=== PATIENT | female | born 2000 | race Caucasian/White ===

== ENCOUNTER 2024-02-06 07:54 | Outpatient (OUT) | payer OTHER, SELFPAY | END 2024-02-06 07:55 | disposition home or self-care (01) | LOC: PST 07:58 | PROVIDERS: PCP Nurse Practitioner Family; Visit Provider Obstetrics & Gynecology | DX: Z01.818 Encounter for other preprocedural examination (principal); R10.2 Pelvic and perineal pain; N83.299 Other ovarian cyst, unspecified side ==

== ENCOUNTER 2024-02-21 08:58 | Day surgery (SDC) | payer OTHER, SELFPAY ==
[2024-02-06 08:38] VITALS: BP 112/68; PULSE 84; TEMP 36.3; O2SAT 100; BMI 23.5
[2024-02-21] VITALS (17 sets, daily range): BP systolic 95–132; BP diastolic 52–81; PULSE 81–109; TEMP 36.1–36.5; O2SAT 97–100; BMI 23.1
[2024-02-21 09:11] LABS: Basophils Percent Auto 0.6 % (0.2-2.0); Eosinophils Absolute Auto 0.1 10^3/uL (0.0-0.7); Eosinophils Percent Auto 0.7 % (0.9-7.0); Hematocrit 33.3 % (36.0-48.0); Hemoglobin 11.1 g/dL (12.0-16.0); Immature Granulocytes Abs Auto 0.02 10^3/uL (0.00-0.03); Immature Granulocytes Pct Auto 0.3 % (0.0-0.5); Lymphocytes Absolute Auto 2.3 10^3/uL (1.2-3.8); Mean Corpuscular HGB Conc 33.3 g/dL (29.9-35.2); Mean Corpuscular Hemoglobin 28.5 pg (26.7-34.0); Mean Corpuscular Volume 85.4 fL (81.0-99.0); Mean Platelet Volume 11.2 fL (9.5-13.5); Monocytes Absolute Auto 0.5 10^3/uL (0.3-0.8); Monocytes Percent Auto 7.7 % (1.7-12.0); Neutrophils Percent Auto 57.7 % (43.0-75.0); Platelet Count 225 10^3/uL (150-450); Red Cell Distribution Width 13.1 % (11.0-15.0); White Blood Count 6.9 10^3/uL (4.0-11.0)
--- OUTSIDE RECORDS SUMMARY | 2024-02-21 09:22 | XMS_ITS | CCD ---
Author Organization [facility] Care Team Providers Care Skinning Machine Feeder Name Role Phone AMBAR, MURALI Admitting Unavailable AMBAR, MURALI Attending Unavailable AMBAR, MURALI Consulting Unavailable AMBAR, MURALI Admitting Unavailable AMBAR, MURALI Attending Unavailable AMBAR, MURALI Consulting Unavailable DO Te Calles Attending Provider [phone] Yulissa Coy Primary Care Physician DO Te Calles Attending Provider [phone] Te Calles Attending Unavailable Te Calles Admitting Unavailable BILL, EDEL Attending Unavailable BILL, EDEL Attending Unavailable BILL, EDEL Attending Unavailable Wiley Esquivel Attending Unavailable Wiley Esquivel Attending Unavailable BILL, Edel R Admitting Unavailable BILL, Edel R Attending Unavailable BILL, Edel R Referring Unavailable BILL, Edel R Attending Unavailable BILL, Edel R Admitting Unavailable BILL, Edel R Admitting Unavailable BILL, Edel R Attending Unavailable Wiley Esquivel Admitting Unavailable Wiley Esquivel Attending Unavailable Wiley Esquivel Admitting Unavailable Wiley Esquivel Attending Unavailable BILL, Edel R Admitting Unavailable BILL, Edel R Attending Unavailable BILL, Edel R Referring Unavailable Allergies Allergy Classification Reported Allergen(s) Allergy Type Date of Onset Reaction(s) Facility (11 sources) Penicillin; Translations: [penicillin] Drug Allergy Weal (disorder) [facility] (1 source) No Known Medication Allergies; Translations: [No Known Medication Allergies] Propensity to adverse reactions (disorder) [facility] Repository Medications Current Medications Medication Drug Class(es) Dates Sig (Normalized) Sig (Original) azithromycin 250 mg oral tablet (1 source) Macrolide Antimicrobial Start: 02-12-2023 End: 02-17-2023 Zithromax 250 mg Tab = 1 packet(s), Oral, As Directed, as directed on package labeling, X 5 day(s), # 6 tab(s), Refills(s) 0, Pharmacy: [facility] #[facility], 166, cm, 02/12/23 14:16:00 EDT, Height/Length Dosing, 65.3, kg, 02/12/23 14:16:00 EDT, Weight Dosing Start Date: 02/12/23 Stop Date: 02/17/23 Status: Ordered benzonatate 100 mg oral capsule (1 source) Non-narcotic Antitussive Start: 02-12-2023 End: 02-19-2023 take 1 capsule by mouth three times daily Tessalon 100 mg Cap 100 mg = 1 cap(s), Oral, TID, X 7 day(s), # 21 cap(s), Refills(s) 0, Pharmacy: [facility] #37, 166, cm, 02/12/23 14:16:00 EDT, Height/Length Dosing, 65.3, kg, 02/12/23 14:16:00 EDT, Weight Dosing Start Date: 02/12/23 Stop Date: 02/19/23 Status: Ordered phenazopyridine hydrochloride 100 mg oral tablet (3 sources) Start: 08-02-2023 End: 08-05-2023 take 1 tablet by mouth three times daily Pyridium 100 mg Tab 100 mg = 1 tab(s), Oral, TID, X 3 day(s), # 9 tab(s), Refills(s) 0, Pharmacy: [facility] #37, 165, cm, 08/02/23 12:41:00 EDT, Height/Length Dosing, 60, kg, 08/02/23 12:41:00 EDT, Weight Dosing Start Date: 08/02/23 Stop Date: 08/05/23 Status: Ordered sulfamethoxazole 800 mg / trimethoprim 160 mg oral tablet (2 sources) Dihydrofolate Reductase Inhibitor Antibacterial, Sulfonamide Antimicrobial Start: 08-21-2022 End: 08-24-2022 Bactrim D.S. 800 mg-160 mg Tab 1 tab(s), Oral, BID for 3 day(s), 6 tab(s), Refill(s) 0, [facility] #[facility], 168, cm, 08/21/22 17:43:00 EST, Height/Length Dosing, 68.1, kg, 08/21/22 17:43:00 EST, Weight Dosing Start Date: 08/21/22 Stop Date: 08/24/22 Status: Ordered Problems Active Problems Problem Classification Problem Date Documented Da te Episodic/Chronic Chronic obstructive pulmonary disease and bronchiectasis (1 source) Bronchitis; Translations: [Bronchitis, not specified as acute or chronic] Onset: 02-12-2023 Episodic Genitourinary symptoms and ill-defined conditions (3 sources) Dysuria; Translations: [Dysuria] Onset: 08-02-2023 Episodic Unclassified (2 sources) CONTACT W/AND (SUSP) EXPOS COVID-19; Translations: [CONTACT W/AND (SUSP) EXPOS COVID-19] Onset: 07-09-2021 Urinary tract infections (2 sources) Urinary tract infectious disease; Translations: [Urinary tract infection, site not specified] Onset: 08-21-2022 Episodic Viral infection (1 source) COVID-19; Translations: [COVID-19] Onset: 07-09-2021 Past or Other Problems Problem Classification Problem Date Documented Date Episodic/Chronic Immunizations and screening for infectious disease (4 sources) Contact with and (suspected) exposure to infections with a predominantly sexual mode of transmission; Translations: [CONTCT W EXPOS INFECT SEXUAL TRNSMS] Onset: 01-27-2021 Episodic Unclassified (1 source) CONTACT W/AND (SUSP) EXPOS COVID-19; Translations: [CONTACT W/AND (SUSP) EXPOS COVID-19] Onset: 06-22-2021 Results Test Name Value Interpretation Reference Range Facility AFPon 01-30-2024 AFP.tumor marker [Mass/Vol] ng/mL Invalid Interpretation Code 0.0-4.7 [facility] Comment on above: Result Comment: Yekra Electrochemiluminescence Immunoassay (ECLIA) Values obtained with different assay methods or kits cannot be used interchangeably. Results cannot be interpreted as absolute evidence of the presence or absence of malignant disease. This test is not interpretable in females. Performed at: [address] [id number] PhD Bryan Ruelas Performed By: #### 2 552072, 5982951, [id number] ####[facility] [address] [place] [address] CA 125on 01-30-2024 Cancer Ag 125 Qn 28.5 unit/mL Invalid Interpretation Code 0.0-38.1 [facility] Comment on above: Result Comment: [employer] Electrochemiluminescence Immunoassay (ECLIA) Values obtained with different assay methods or kits cannot be used interchangeably. Results cannot be interpreted as absolute evidence of the presence or absence of malignant disease. Performed at: [address] [id number] PhD Bryan Ruelas Performed By: #### 2 941819, 6839807, 4201353 ####[facility] [address] [place] [address] Lab Miscellaneous-LCon 01-29 Lab Miscellaneous COMMENT Invalid Interpretation Code [facility] Comment on above: Result Comment: Test Ordered: 129277 hCG,Beta Subunit, Qnt hCG,Beta Subunit,Qnt,Serum <1 mIU/mL CB Female (Non-) 0 - 5 (Postmenopausal) 0 - 8 Female () Weeks of Gestation 3 6 - 71 4 10 - 750 5 618 - 9738 6 133 - 68242 7 4572 -521643 8 37833 -728672 9 00833 -522144 10 35138 -575970 12 11363 -836664 14 02268 - 78495 15 35086 - 35783 16 6146 - 28108 17 1144 - 27402 18 2555 - 29837 Sanjay ECLIA methodology Performed at: [address] [id number] PhD Bryan Ruelas Performed By: #### 1 [id number] ####[facility] [address] [place] [address] CEAon 01-29-2024 CEA 0.4 ng/mL Invalid Interpretation Code [facility] Comment on above: Result Comment: 'NON -SMOKER < 2.5' 'SMOKER < 5.0' The concentration of CEA in a given specimen determined by different manufacturers can vary due to differences in assay methods and reagent specificity. Values obtained with different assay methods cannot be used interchangeably. The methodology used to perform this test was chemiluminescence using [employer] Access CEA reagent. Performed By: #### 2 044461, 6831104, 8323698 ####[facility] [address] [place] [address] CHEMISTRYOrdered By: SYSTEM SYSTEM on 01-29-2024 CEA 0.4 ng/mL Invalid Interpretation Code [facility] Comment on above: Result Comment: 'NON -SMOKER < 2.5' 'SMOKER < 5.0' Interpretive Data: T he concentration of CEA in a given specimen determined by different manufacturers can vary due to differences in assay methods and reagent specificity. Values obtained with different assay methods cannot be used interchangeably. The methodology used to perform this test was chemiluminescence using [employer] Access CEA reagent. Consent for Treatmenton 01-06 Consent for Treatment [id number]#1.00TIFF Normal [facility] Lab Miscellaneous-LCon 01-28 Test Code 143467 Invalid Interpretation Code [facility] Comment on above: Performed By: #### 1 [id number] ####[address] [address] Test Name HCG, tumor lorenzo Invalid Interpretation Code [facility] Comment on above: Performed By: #### 1 [id number] ####[address] [address] Physician Orderon 01-29-2024 Physician Order [id number]#1.00TIFF Normal [facility] Reference Laboratory Testing Ordered By: Niya Anguiano on 01-29-2024 Test Code 860481 1 Invalid Interpretation Code [facility] Test Code 574426 1 Invalid Interpretation Code [facility] Test Name LDH Isoenzymes Invalid Interpretation Code [facility] Test Name HCG, tumor lorenzo Invalid Interpretation Code [facility] US Pelvis Non-OB Completeon 01-17-2024 US Pelvis Non-OB Complete Exam Date/Time: 01/14/2024 09:56 EDT Reason for Exam: N92.6, N83.209 Report IMPRESSION: 1.8 and 1.6 cm hypoechoic nodules/cysts of the right adnexa region without distinct internal vascularity, appears interval decreased in size from 10/22/2023, favoring benign process. Probable hemorrhagic cyst of the left adnexa region measuring 3.0 cm, new from prior. Consider follow-up in 2-3 months to ensure stability/resolution. EXAMINATION: US Pelvis Non-OB Complete HISTORY: Interval follow-up. COMPARISON: 10/22/2023 TECHNIQUE: Sonography of the pelvis was performed by transvaginal and transabdominal techniques. Images were obtained and stored in a permanent archive. RESULT: Uterus: -Orientation: Anteverted -Size: Uterus Length: 8.7 cm x Uterus Width: 5.0 cm x Uterus Height: 3.2 cm. Uterus Volume: 71.9 cm3 -Myometrium: Homogeneous echotexture. -Endometrial echo complex: Endometrium Thickness: 0.8 cm -Cervix: Nabothian cysts, otherwise unremarkable. Right ovary: -Size: Right Ovary Length: 3.6 cm x Right Ovary Width: 3.5 cm x Right Ovary Height: 2.3 cm. Right Ovary Volume: 15.2 cm3 -Complex cyst/solid mass: 1.8 and 1.6 cm hypoechoic nodules or cysts, without distinct internal vascularity, and appear slightly decreased in size from the prior ultrasound, favoring benign process. -Vascular flow present. Left ovary: -Size: Left Ovary Length: 3.4 cm x Left Ovary Width: 2.4 cm x Left Ovary Height: 2.0 cm. Left Ovary Volume: 8.5 cm3 -Complex cyst/solid mass: 3.0 cm complex appearing cyst, probably representing hemorrhagic cysts, new from prior. -Vascular flow present. Free fluid: None. Report Ordering Provider: Edel KHAN FINAL REPORT Dictated: 01/17/2024 10:13 am KendraBentley sheikh MD Signed (Electronic Signature): 01/17/2024 10:13 am Signed by: Bentley Gardner MD Transcribed by: MARI Technologist: CARLOZ [facility] US Transvaginal Non-OBon US Transvaginal Non-OB Exam Date/Time: 01/14/2024 09:56 EDT Reason for Exam: N92.6, N83.209 Report Refer to concurrent pelvic ultrasound dictation. Ordering Provider: Edel KHAN FINAL REPORT Dictated: 01/17/2024 10:14 am Bentley Gardner MD Signed (Electronic Signature): 01/17/2024 10:14 am Signed by: Bentley Gardner MD Transcribed by: MARI Technologist: CARLOZ [facility] Consent for Treatmenton Consent for Treatment [id number]#1.00TIFF [facility] Physician Orderon 12-09-2023 Physician Order [id number]#1.00TIFF [facility] Anti-Mullerian Hormone (AMH) on 10-25-2023 Mullerian inhibiting substance [Mass/Vol] 5.63 ng/mL Invalid Interpretation Code [facility] Comment on above: Result Comment: For assays employing antibodies, the possibility exists for interference by heterophile antibodies in the samples.1 1.Suzi Spence. Interferences in Immunoassays - still a threat. Clin. Chem. 2000; 46: 2530-1045. This test was developed and its performance characteristics determined by [employer]. It has not been cleared or approved by the Food and Drug Administration. Reference Range: Females 20 - 25y: 1.23 - 11.51 Median 4.70 AMH concentrations of >= 1.06 ng/mL is correlated with a better response to ovarian stimulation, produced more retrievable oocytes and higher odds of live according to Ze et al. Fertility and Sterility. 2010: 94:3351-4159. The current AMH test method correlates with the study method with a slope of 0.94. Females at risk of ovarian hyperstimulation syndrome or polycystic ovarian syndrome (PCOS) may exhibit elevated serum AMH concentrations. AMH levels from PCOS patients may be 2 to 5 fold higher than age-appropriate reference interval values. Granulosa cell tumors of the ovary may secrete AMH along with other tumor markers. Elevated AMH is not specific for malignancy, and the assay should not be used exclusively to diagnose or exclude an AMH-secreting ovarian tumor. Performed at: [facility] [address] [place] [address] [id number] MD Curtis Abdalla Performed By: #### 2 053201, 9421012, 685123559, 8647645, 39757378, 8952232744, 0306196, 47177722 ####[facility] [address] [place] [address] DHEASon 10-25-2023 DHEA-S [Mass/Vol] 265.0 microgram/dL Invalid Interpretation Code 110.0-431. 7 [facility] Comment on above: Result Comment: Perf ormed at: [facility] [address] [id number] PhD Bryan Ruelas Performed By: #### 2 914447, 6750415, 598021007, 4976606, 12026968, 2405254797, 8306818, 24895068 ####[facility] [address] [place] [address] FSH and LHon 10-25-2023 Follitropin Qn 12.1 m[IU]/mL Invalid Interpretation Code [facility] Comment on above: Result Comment: Adul t Female Range Follicular phase 3.5 - 12.5 Ovulation phase 4.7 - 21.5 Luteal phase 1.7 - 7.7 Postmenopausal 25.8 - 134.8 Performed at: [facility] [address] [place], [place] [id number] PhD Bryan Ruelas Performed By: #### 2 622216, 4238423, 229696697, 1599026, 11627306, 0406275825, 9480126, 45632868 ####[facility] [address] [place] [address] Lutropin Qn 66.7 m[IU]/mL Invalid Interpretation Code [facility] Comment on above: Result Comment: Adul t Female Range Follicular phase 2.4 - 12.6 Ovulation phase 14.0 - 95.6 Luteal phase 1.0 - 11.4 Postmenopausal 7.7 - 58.5 Performed By: #### 2 966780, 2098126, 491816438, 9483623, 37849076, 9943274145, 7550383, 77300352 ####[facility] [address] [place] [address] US Pelvis Non-OB Completeon 10-23-2023 US Pelvis Non-OB Complete Exam Date/Time: 10/22/2023 12:35 EST Reason for Exam: N92.6 Irregular menstruation, unspecified Report IMPRESSION: 2.1 and 1.9 cm hypoechoic nodules/cysts in the right adnexa region without distinct internal vascularity. These may represent hemorrhagic cysts or dermoid cysts. Consider follow-up ultrasound in around 6-8 weeks to ensure stability/resolution. EXAMINATION: US Pelvis Non-OB Complete HISTORY: N92.6 Irregular menstruation, unspecified. COMPARISON: None TECHNIQUE: Sonography of the pelvis was performed by transabdominal technique. Images were obtained and stored in a permanent archive. RESULT: Uterus: -Orientation: Anteverted -Size: Uterus Length: 9.6 cm x Uterus Width: 5.0 cm x Uterus Height: 3.2 cm. Uterus Volume: 79.9 cm3 -Myometrium: Homogeneous echotexture. -Endometrial echo complex: Endometrium Thickness: 1.6 cm -Cervix: Nabothian cysts, otherwise unremarkable. Right ovary: -Size: Right Ovary Length: 3.9 cm x Right Ovary Width: 3.7 cm x Right Ovary Height: 2.6 cm. Right Ovary Volume: 19.8 cm3 -Complex cyst/solid mass: 1.9 cm and 2.1 cm hypoechoic nodules or cysts without distinct internal vascularity. These may represent hemorrhagic cysts or dermoid cysts. -Vascular flow present. Left ovary: 2.7 cm and 2.1 cm anechoic benign-appearing cysts. -Size: Left Ovary Length: 5.1 cm x Left Ovary Width: 3.6 cm x Left Ovary Height: 3.1 cm. Left Ovary Volume: 29.7 cm3 -Complex cyst: None. -Solid mass: None. -Vascular flow present. Free fluid: None. Report Ordering Provider: Edel KHAN FINAL REPORT Dictated: 10/23/2023 9:56 am Bentley Gardner MD Signed (Electronic Signature): 10/23/2023 9:56 am Signed by: Bentley Gardner MD Transcribed by: MARI Technologist: CARLOZ Normal [facility] US Transvaginal Non-OBon US Transvaginal Non-OB Exam Date/Time: 10/22/2023 12:35 EST Reason for Exam: Abnormal vaginal bleeding Report Refer to concurrent pelvic ultrasound dictation. Ordering Provider: Edel KHAN FINAL REPORT Dictated: 10/23/2023 9:56 am Bentley Gardner MD Signed (Electronic Signature): 10/23/2023 9:56 am Signed by: Bentley Gardner MD Transcribed by: MARI Technologist: CARLOZ Normal [facility] Auto Diffon 10-22-2023 Basophils/100 WBC (Bld) 0.5 % Normal 0.0-2.0 [facility] Comment on above: Order Comment: Order Added by Discern Expert. Performed By: #### 2 181220, 6436253, 835722006, 0761207, 80620212, 4722016303, 9112973, 54046010 ####[facility] [address] [place] [address] Basophils/Leukocytes Auto (Bld) [Pure # fraction] 0.0 E9/L Normal 0.0-0.2 [facility] Comment on above: Order Comment: Order Added by Discern Expert. Performed By: #### 2 190860, 1077876, 251229160, 5228811, 45568780, 6025295210, 5468939, 98997554 ####[facility] [address] [place] [address] Eosinophils/100 WBC (Bld) 0.5 % Normal 0.0-8.0 [facility] Comment on above: Order Comment: Order Added by Discern Expert. Performed By: #### 2 563622, 4837630, 948617157, 3968083, 50094807, 9068742430, 3856857, 88632232 ####[address] [place] [address] Eosinophils/Leukocytes Auto (Bld) [Pure # fraction] 0.0 E9/L Normal 0.0-0.5 [facility] Comment on above: Order Comment: Order Added by Discern Expert. Performed By: #### 2 131512, 0110133, 077890751, 4657190, 10507440, 0719379704, 0501795, 49047609 ####[address] [place] [address] Lymphocytes/100 WBC (Bld) 21.2 % Normal 14.0-50.0 [facility] Comment on above: Order Comment: Order Added by Discern Expert. Performed By: #### 2 788330, 4920689, 966721884, 3044285, 72878900, 2228411998, 3351434, 61304216 ####[address] [address] Lymphocytes/Leukocytes Auto (Bld) [Pure # fraction] 1.8 E9/L Normal 1.0-4.0 [facility] Comment on above: Order Comment: Order Added by Discern Expert. Performed By: #### 2 284402, 3156171, 658047449, 0123481, 87750176, 2684474528, 2164049, 96099467 ####[address] [address] Monocytes/100 WBC (Bld) 7.4 % Normal 4.0-14.0 [facility] Comment on above: Order Comment: Order Added by Discern Expert. Performed By: #### 2 319814, 4061528, 399005869, 7731058, 09467842, 5295027357, 7786006, 41223012 ####[address] [place] [address] Monocytes/Leukocytes Auto (Bld) [Pure # fraction] 0.6 E9/L Normal 0.2-1.0 [facility] Comment on above: Order Comment: Order Added by Discern Expert. Performed By: #### 2 240362, 4575750, 443761248, 1339647, 13650776, 4805741962, 3620133, 75529443 ####[facility] [address] [place] [address] Neutrophils/100 WBC (Bld) 70.4 % Normal 36.0-75.0 [facility] Comment on above: Order Comment: Order Added by Discern Expert. Performed By: #### 2 133492, 2151699, 810219438, 5148960, 04591332, 4665139910, 5993674, 22570577 ####[facility] [address] [place] [address] Neutrophils/Leukocytes Auto (Bld) [Pure # fraction] 6.2 E9/L Normal 2.0-7.5 [facility] Comment on above: Order Comment: Order Added by Discern Expert. Performed By: #### 2 361297, 9913663, 050258841, 7260267, 71186818, 6826144847, 9870120, 07359755 ####[facility] [address] [place] [address] BhCG Quanton 10-22-2023 Beta hCG Qnt <1 Normal 1-3 [facility] Comment on above: Result Comment: 'F N ON < 1 - 3' ' 0.2 - 1 WEEK = 5 TO 50' ' 1 - 2 WEEKS = 50 - 500' ' 2 - 3 WEEKS = 100 - 5000' ' 3 - 4 WEEKS = 500 - 71803' ' 4 - 5 WEEKS = 1000 - 99937' ' 5 - 6 WEEKS = 86920 - 502334' ' 6 - 8 WEEKS = 62002 - 401097' ' 8 - 12 WEEKS = 41485 - 387229' Performed By: #### 2 649311 ####[facility] [address] [place] [address] CBC w/ Auto Diffon Erythrocyte distribution width (RBC) [Ratio] 14.5 % High 10.9-14.2 [facility] Comment on above: Performed By: #### 2 196808, 5672819, 258242577, 2689176, 05059099, 9806021457, 3386928, 36117485 ####[facility] [address] [place] [address] Hematocrit (Bld) [Volume fraction] 35.6 % Normal 34.0-46.0 [facility] Comment on above: Performed By: #### 2 228926, 0688910, 160806227, 7009330, 33386103, 5234510173, 0830030, 77766243 ####[address] [place] [address] Hemoglobin (Bld) [Mass/Vol] 11.9 g/dL Low 12.0-16.0 [facility] Comment on above: Performed By: #### 2 968836, 9088479, 215291387, 5982485, 54835715, 8869575619, 3183264, 49620968 ####[facility] [address] [place] [address] MCH (RBC) [Entitic mass] 28.6 pg Normal 27.0-34.0 [facility] Comment on above: Performed By: #### 2 384102, 8063716, 991460268, 8019888, 27320268, 1999278940, 2722219, 63138433 ####[facility] [address] [place] [address] MCHC (RBC) [Mass/Vol] 33.4 g/dL Normal 31.4-36.0 [facility] Comment on above: Performed By: #### 2 805292, 1458514, 776865136, 0732616, 27685411, 3098528327, 7476253, 56413062 ####[facility] [address] [place] [address] MCV (RBC) [Entitic vol] 85.8 fL Normal 80.0-100.0 [facility] Comment on above: Performed By: #### 2 088560, 2251762, 327997715, 3946474, 53808116, 2200937147, 3256006, 96258743 ####[facility] [address] [place] [address] Platelet mean volume (Bld) [Entitic vol] 9.8 fL Normal 6.4-10.8 [facility] Comment on above: Performed By: #### 2 194231, 6902958, 911997441, 7973236, 70397353, 1060640168, 7085248, 09105228 ####[address] [place] [address] Platelets (Bld) [#/Vol] 293.0 E9/L Normal 150.0-500. 0 [facility] Comment on above: Performed By: #### 2 504461, 2063904, 124018534, 5662827, 40685346, 2739241987, 3502335, 07191122 ####[address] [address] RBC (Bld) [#/Vol] 4.2 E12/L Low 4.3-5.9 [facility] Comment on above: Performed By: #### 2 723804, 1234743, 284918291, 6261828, 27319377, 0006110119, 1830845, 60147181 ####[address] [address] WBC corrected for nucl RBC Auto (Bld) [#/Vol] 8.7 E9/L Normal 4.0-11.0 [facility] Comment on above: Performed By: #### 2 164181, 2360371, 795132552, 9087753, 13236051, 0182570118, 0965865, 96645852 ####[address] [place] [address] CHEMISTRYOrdered By: SYSTEM SYSTEM on 10-22-2023 Beta hCG Qnt mIU/mL Normal 1 - 3 mIU/mL [facility] Comment on above: Result Comment: 'F N ON < 1 - 3' ' 0.2 - 1 WEEK = 5 TO 50' ' 1 - 2 WEEKS = 50 - 500' ' 2 - 3 WEEKS = 100 - 5000' ' 3 - 4 WEEKS = 500 - 79400' ' 4 - 5 WEEKS = 1000 - 27563' ' 5 - 6 WEEKS = 89956 - 102623' ' 6 - 8 WEEKS = 45991 - 137296' ' 8 - 12 WEEKS = 19185 - [id number]' Free T4 [Mass/Vol] 0.75 ng/dL Normal 0.58 - 1.64 ng/dL Remisol Chem TSH Qn 2.03 m[IU]/L Normal 0.34 - 5.60 mcIU/mL Remisol Chem CHEMISTRYOrdered By: Saida Anguiano on 10-22-2023 HbA1c (Bld) [Mass fraction] 4.7 % Normal <=5.9% [facility] ChemAutoSS Consent for Treatmenton 10-07 Consent for Treatment [id number]#1.00TIFF Normal [facility] Consent for Treatment [id number]#1.00TIFF Normal [facility] Free T4on 10-22-2023 Free T4 [Mass/Vol] 0.75 ng/dL Normal 0.58-1.64 [facility] Comment on above: Performed By: #### 2 [id number], [id number], [id number] ####[facility] [address] [place] [address] HEMATOLOGYOrdered By: SYSTEM SYSTEM on 10-22-2023 Basophils/100 WBC (Bld) 0.5 % Normal 0.0 - 2.0 % [facility] HemeAutoSS Basophils/Leukocytes Auto (Bld) [Pure # fraction] 0.0 E9/L Normal 0.0 - 0.2 E9/L [facility] HemeAutoSS Eosinophils/100 WBC (Bld) 0.5 % Normal 0.0 - 8.0 % [facility] HemeAutoSS Eosinophils/Leukocytes Auto (Bld) [Pure # fraction] 0.0 E9/L Normal 0.0 - 0.5 E9/L [facility] HemeAutoSS Lymphocytes/100 WBC (Bld) 21.2 % Normal 14.0 - 50.0 % [facility] HemeAutoSS Lymphocytes/Leukocytes Auto (Bld) [Pure # fraction] 1.8 E9/L Normal 1.0 - 4.0 E9/L [facility] HemeAutoSS Monocytes/100 WBC (Bld) 7.4 % Normal 4.0 - 14.0 % [facility] HemeAutoSS Monocytes/Leukocytes Auto (Bld) [Pure # fraction] 0.6 E9/L Normal 0.2 - 1.0 E9/L [facility] HemeAutoSS Neutrophils/100 WBC (Bld) 70.4 % Normal 36.0 - 75.0 % [facility] HemeAutoSS Neutrophils/Leukocytes Auto (Bld) [Pure # fraction] 6.2 E9/L Normal 2.0 - 7.5 E9/L [facility] HemeAutoSS HEMATOLOGYOrdered By: Karen Martinez on 10-22-2023 Erythrocyte distribution width (RBC) [Ratio] 14.5 % High 10.9 - 14.2 % [facility] HemeAutoSS Hematocrit (Bld) [Volume fraction] 35.6 % Normal 34.0 - 46.0 % [facility] HemeAutoSS Hemoglobin (Bld) [Mass/Vol] 11.9 g/dL Low 12.0 - 16.0 gm/dL [facility] HemeAutoSS MCH (RBC) [Entitic mass] 28.6 pg Normal 27.0 - 34.0 pg [facility] HemeAutoSS MCHC (RBC) [Mass/Vol] 33.4 g/dL Normal 31.4 - 36.0 gm/dL [facility] HemeAutoSS MCV (RBC) [Entitic vol] 85.8 fL Normal 80.0 - 100.0 fL [facility] HemeAutoSS Platelet mean volume (Bld) [Entitic vol] 9.8 fL Normal 6.4 - 10.8 fL [facility] HemeAutoSS Platelets (Bld) [#/Vol] 293.0 E9/L Normal 150.0 - 500.0 E9/L [facility] HemeAutoSS RBC (Bld) [#/Vol] 4.2 E12/L Low 4.3 - 5.9 E12/L [facility] HemeAutoSS WBC corrected for nucl RBC Auto (Bld) [#/Vol] 8.7 E9/L Normal 4.0 - 11.0 E9/L [facility]eAuto[facility] [id number] 10-22-2023 HbA1c (Bld) [Mass fraction] 4.7 % Normal <=5.9 [facility] Comment on above: Performed By: #### 2 [id number], [id number], [id number], [id number], [id number], [id number] ####[facility] [address] [place] [address] Physician Orderon 10-22-2023 Physician Order [id number]#1.00TIFF Normal [facility] TSHon 10-22-2023 TSH Qn 2.03 m[IU]/L Normal 0.34-5.60 [facility] Comment on above: Performed By: #### 2 [id number], [id number], [id number], [id number] ####[facility] [address] [place] [address] Physician Orderon 10-10-2023 Physician Order [id number]#1.00TIFF Normal [facility] C Urineon 08-04-2023 Bacteria identified Cx Nom (U) Microbiology PROCEDURE: Urine Culture [R1] SOURCE: U CleanCatch BODY SITE: COLLECTED DATE/TIME: 08/02/2023 13:10 EDT RECEIVED DATE/TIME: 08/02/2023 14:37 EDT START DATE/TIME: 08/02/2023 14:37 EDT FREE TEXT SOURCE: Alvin NICOLAS, Wiley Esquivel PA-C, Wiley Yu. FINAL REPORTS Final Report [] Verified Date/Time: 08/04/2023 11:35 EDT 1,000 cfu/ml Mixed skin contaminants Performing Locations R1: This test was performed at: [facility], [address] [place] [address], [id number] , [place], Normal [facility] Comment on above: Performed By: #### 2 [id number] ####[facility] [address] [place] [id number] Family Medicine Office/Clini c Noteon 08-02-2023 Family Medicine Office/Clinic Note Chief Complaint Here for c/o uti sx HPI Staff Oscar 22 yr old female here for UTi sx of pressure when urinating, urgency and then cant go starting 2 weeks ago and sx come and go randomly History of Present Illness I have reviewed and verified the staff HPI to be accurate for this encounter. Portions of this record have been created with voice recognition software. Occasional wrong-word or ?uihgb-u-flip? substitutions may have occurred due to the inherent limitations of voice recognition software. 22 yo female presents today with cc of possible UTI. Patient states over the past 2 weeks intermittently she has had some urinary urgency and frequency. States on occasion she feels like she has to go and then can only go a small amount. States occasional dysuria denies any hematuria. She denies any abdominal or pelvic pain denies any low back pain fever chills. Denies flank pain or history of kidney stones. Patient states she is only had a urinary tract infection 1 other time. Patient states that her symptoms are very tolerable and when she just bought some heni-diu-cycgwra cranberry and vitamin C. She has not tried any other modifying factors and states she been drinking lots of water. Patient states she had concern is she is in a wedding this weekend. Wanted to make sure that she did not have an acute UTI that she states she has been watching all of these videos on TikTok and had concern that she would develop a kidney infection. She denies any abdominal pain nausea vomiting or diarrhea with her symptoms. Denies any chance of . She has no other concerns at this time. Review of Systems PHQ Score Initial Depression Screen Score: 0 ROS negative unless otherwise stated in HPI. Physical Exam Vitals & Measurements T: 37 ?C(Temporal Artery) HR: 80(Peripheral) RR: 18 BP: 118/68 SpO2: 98% HT: 65 in HT: 165 cm WT: 60 kg WT: 132 lb BMI: 22.04 General: Well developed, well nourished, in no acute distress Eyes: not assessed Ears: not assessed Nose: not addressed Mouth: not assessed Neck: not assessed Lungs: Lung sounds are clear bilaterally. No wheezing rhonchi or crackles on exam. Cardio: S1, S2, regular rhythm. No murmurs gallops or rubs. Abdomen: Bowel sounds are present x4 quadrants. Abdomen is soft, nontender, nondistended. No rigidity rebound or guarding on exam. Musculoskeletal: patient walked back into convenient care on her own without gait abnormality. Extremity: not assessed Neurologic: not assessed Skin: No rashes, ulcerations, or suspicious lesions Mental Status: Alert and oriented x3. Normal mood and affect Assessment/Plan 1. Urinary urgency (R39.15: Urgency of urination) Please follow closely with your primary care provider in 3 to 5 days. Contact their office this afternoon to schedule a follow-up appointment. You were seen and evaluated in convenient care today with concern for possible urinary tract infection. Your urine dip today is negative for any leukocytes nitrates ketones which is negative at this time. In regards to your intermittent symptoms and your long wedding they can discuss in regards to prescription Pyridium 1 tablet every 8 hours as needed for urinary discomfort. Continue to monitor symptoms and develop any worsening or concerning symptoms such as abdominal pain low back pain flank pain nausea vomiting or for any other worsening or concerning symptoms he should be seen for reevaluation. Patient agrees and understands plan of care. Patient understands that she will be notified in regards to urine culture results. If these culture results are positive she will require antibiotic in which she will be notified. Patient agrees and understands plan of care. Ordered: phenazopyridine, 100 mg = 1 tab(s), Oral, TID, X 3 day(s), # 9 tab(s), Refills(s) 0, Pharmacy: [facility], 165, cm, 08/02/23 12:41:00 EDT, Height/Length Dosing, 60, kg, 08/02/23 12:41:00 EDT, Weight Dosing 2. Dysuria (R30.0: Dysuria) see above Ordered: phenazopyridine, 100 mg = 1 tab(s), Oral, TID, X 3 day(s), # 9 tab(s), Refills(s) 0, Pharmacy: [facility], 165, cm, 08/02/23 12:41:00 EDT, Height/Length Dosing, 60, kg, 08/02/23 12:41:00 EDT, Weight Dosing UTI (urinary tract infection), uncomplicated (N39.0: Urinary tract infection, site not specified) Ordered: Urnls Dip Stick Non-Auto w/o Micrscpy POC [id number] Follow-up With When Contact Information Yulissa Coy CNP [address] [place] [place] [address], [address] [place] [address]- Additional Instructions: Patient Education Dysuria Problem List/Past Medical History Ongoing No chronic problems Historical No qualifying data Procedure/Surgical History Dental, Tonsillectomy and adenoidectomy. Medications Pyridium 100 mg Tab, 100 mg= 1 tab(s), Oral, TID Allergies penicillin (Hives) Social History Tobacco - Denies Tobacco Use, 08/21/2022 Never (less than 100 in lifetime) Tobacco Use:. Never Smokeless Tobacco Use:., 1 (more content not included)... Normal [facility] Comment on above: Result Comment: Elec tronically Signed By: Alvin NICOLAS, Wiley Mike\.br\Date and Time Signed: 08/02/23 13:00 EDT Patient Educationon 08-02-20 Patient Education Urology Dysuria Dysuria is pain or discomfort during urination. The pain or discomfort may be felt in the part of the body that drains urine from the bladder (urethra) or in the surrounding tissue of the genitals. The pain may also be felt in the groin area, lower abdomen, or lower back. You may have to urinate frequently or have the sudden feeling that you have to urinate (urgency). Dysuria can affect anyone, but it is more common in females. Dysuria can be caused by many different things, including: ? Urinary tract infection. ? Kidney stones or bladder stones. ? Certain STIs (sexually transmitted infections), such as chlamydia. ? Dehydration. ? Inflammation of the tissues of the vagina. ? Use of certain medicines. ? Use of certain soaps or scented products that cause irritation. Follow these instructions at home: Medicines ? Take vpwf-uuv-onnjhmw and prescription medicines only as told by your health care provider. ? If you were prescribed an antibiotic medicine, take it as told by your health care provider. Do not stop taking the antibiotic even if you start to feel better. Eating and drinking ? Drink enough fluid to keep your urine pale yellow. ? Avoid caffeinated beverages, tea, and alcohol. These beverages can irritate the bladder and make dysuria worse. In males, alcohol may irritate the prostate. General instructions ? Watch your condition for any changes. ? Urinate often. Avoid holding urine for long periods of time. ? If you are female, you should wipe from front to back after urinating or having a bowel movement. Use each piece of toilet paper only once. ? Empty your bladder after sex. ? Keep all follow-up visits. This is important. ? If you had any tests done to find the cause of dysuria, it is up to you to get your test results. Ask your health care provider, or the department that is doing the test, when your results will be ready. Contact a health care provider if: ? You have a fever. ? You develop pain in your back or sides. ? You have nausea or vomiting. ? You have blood in your urine. ? You are not urinating as often as you usually do. Get help right away if: ? Your pain is severe and not relieved with medicines. ? You cannot eat or drink without vomiting. ? You are confused. ? You have a rapid heartbeat while resting. ? You have shaking or chills. ? You feel extremely weak. Summary ? Dysuria is pain or discomfort while urinating. Many different conditions can lead to dysuria. ? If you have dysuria, you may have to urinate frequently or have the sudden feeling that you have to urinate (urgency). ? Watch your condition for any changes. Keep all follow-up visits. ? Make sure that you urinate often and drink enough fluid to keep your urine pale yellow. This information is not intended to replace advice given to you by your health care provider. Make sure you discuss any questions you have with your health care provider. Document Revised: 05/05/2021 Document Reviewed: 05/05/2021 [employer] Patient Education ? 2022 [employer] [facility] Ambulatory Visit Summaryon 0 02-12-2023 Ambulatory Visit Summary OSCAR SINGLETARY :2000 Visit Date:02/12/2023 Ambulatory Visit Instructions Your Diagnosis Bronchitis Your Care Team Attending Physician - Wiley Esquivel PA-C Primary Care Physician - Yulissa Coy CNP This Is Your Medications List azithromycin (Zithromax 250 mg Tab) benzonatate (Tessalon 100 mg Cap) Procedures Performed Dental, Tonsillectomy and adenoidectomy. Discharge Vitals Temperature (Oral) 37.2 ?C Heart Rate (Peripheral) 111 Blood Pressure 112/74 Height 166 cm Height 65 in Weight 65.3 kg Weight 143.66 lb BMI 23.7 What to do next You Need to Schedule the Following Appointments Follow Up with Yulissa Coy CNP When: Where: [address] [place] [address], [address] [place], [place] [id number]- Medications What How Much When Why Instructions New azithromycin (Zithromax 250 mg Tab) 1 Packets By Mouth As Directed Bronchitis Bronchitis Duration: 5 Days as directed on package labeling Pickup at [facility] New benzonatate (Tessalon 100 mg Cap) 1 Capsules By Mouth 3 times a day Bronchitis Bronchitis Duration: 7 Days Pickup at [facility] Pharmacy Information [facility]: [address] [place], [place] [id number] [phone] Medications and Immunizations Administered Not Given influenza virus vaccine, inactivated, Postpone due to refusal SARS-CoV-2 mRNA (tozinameran 5y-11y) vac, Postpone due to refusal Allergies penicillin (Hives) Education Materials Acute Bronchitis, Adult Acute bronchitis is sudden inflammation of the main airways (bronchi) that come off the windpipe (trachea) in the lungs. The swelling causes the airways to get smaller and make more mucus than normal. This can make it hard to breathe and can cause coughing or noisy breathing (wheezing). Acute bronchitis may last several weeks. The cough may last longer. Allergies, asthma, and exposure to smoke may make the condition worse. What are the causes? This condition can be caused by germs and by substances that irritate the lungs, including: ? Cold and flu viruses. The most common cause of this condition is the virus that causes the common cold. ? Bacteria. This is less common. ? Breathing in substances that irritate the lungs, including: ? Smoke from cigarettes and other forms of tobacco. ? Dust and pollen. ? Fumes from household cleaning products, gases, or burned fuel. ? Indoor or outdoor air pollution. What increases the risk? The following factors may make you more likely to develop this condition: ? A weak body's defense system, also called the immune system. ? A condition that affects your lungs and breathing, such as asthma. What are the signs or symptoms? Common symptoms of this condition include: ? Coughing. This may bring up clear, yellow, or green mucus from your lungs (sputum). ? Wheezing. ? Runny or stuffy nose. ? Having too much mucus in your lungs (chest congestion). ? Shortness of breath. ? Aches and pains, including sore throat or chest. How is this diagnosed? This condition is usually diagnosed based on: ? Your symptoms and medical history. ? A physical exam. You may also have other tests, including tests to rule out other conditions, such as pneumonia. These tests include: ? A test of lung function. ? Test of a mucus sample to look for the presence of bacteria. ? Tests to check the oxygen level in your blood. ? Blood tests. ? Chest X-ray. How is this treated? Most cases of acute bronchitis clear up over time without treatment. Your health care provider may recommend: ? Drinking more fluids to help thin your mucus so it is easier to cough up. ? Taking inhaled medicine (inhaler) to improve air flow in and out of your lungs. ? Using a vaporizer or a humidifier. These are machines that add water to the air to help you breathe better. ? Taking a medicine that thins mucus and clears congestion (expectorant). ? Taking a medicine that prevents or stops coughing (cough suppressant). It is notcommon to take an antibiotic medicine for this condition. Follow these instructions at home: ? Take ctbb-wdm-kyewpoq and prescription medicines only as told by your health care provider. ? Use an inhaler, vaporizer, or humidifier as told by your health care provider. ? Take two teaspoons (10 mL) of honey at bedtime to lessen coughing at night. ? Drink enough fluid to keep your urine pale yellow. ? Do not use any products that contain nicotine or tobacco. These products include cigarettes, chewing tobacco, and vaping devices, such as e-cigarettes. If you need help quitting, ask your health care provider. ? Get plenty of rest. ? Return to your normal activities as told by your health care provider. Ask your health care provider what activities are s (more content not included)... Normal [facility] Family Medicine Office/Clini c Noteon 02-12-2023 Family Medicine Office/Clinic Note Chief Complaint EST cough w/pain in back left, sinus congestion, nausea, HPI Staff Pt 22 yo female presents with Poss pneumonia Symptoms started- January 09--flare it yesterday Headache- not now Body aches- yes Earache- no Runny/stuffy nose- yes Problem with Smell- Problem with Taste- Sore throat- yes Cough- yes dry w/back pain left Scratchy tickly throat- no Chest symptoms- no ACOSTA- little Orthopnea- no Lung Hx asthma, bronchitis, chest colds- no Fever/chills- low grade fever, chills GI symptoms- nausea COVID exposure- no Vaccinated- no Treatment- ibuprofen , tylenol. sudafed, cough syrup History of Present Illness nothing over 100.4. Denies headachesI have reviewed and verified the staff HPI to be accurate for this encounter. 22-year-old female with no significant medical history presents with chief complaint of recurrent cough and possible pneumonia. Patient states symptoms started just prior to [place] when she had a bad cough and cold-like symptoms states the cough tended to linger states that improved but now she feels like it is flaring it up with again starting yesterday. She states low-grade fever at home 99.8. States nasal congestion, and body aches. States cough is dry, non-productive. Denies wheezing. No history of asthma denies smoking history. She states yesterday she was standing at her ultrasound machine and felt she was going to pass out states that her fluid intake has been good she feels. She states when she coughs she gets a pain at the right upper back region only with coughing then this resolves. He states some coughing fits at nighttime. She states other family members with similar symptoms will have gotten better she is the only one who has not. She notes medication allergy to penicillin she has no other concerns at this time. Review of Systems PHQ Score Initial Depression Screen Score: 0 Physical Exam Vitals & Measurements T: 37.2 ?C(Oral) HR: 111(Peripheral) BP: 112/74 SpO2: 97% HT: 65 in HT: 166 cm WT: 65.3 kg WT: 143.66 lb BMI: 23.7 General: Well developed, well nourished, in no acute distress Eyes: not assessed Ears: Bilateral tympanic membranes within normal limits no erythema or bulging. Nose: mild nasal mucosa inflammation and edema Mouth: Bilateral tonsils with normal limits no erythema or bulging no signs of peritonsillar abscess no trismus or drooling. Neck: not assessed Lungs: Pt has bronchospasm with coughing on exam. Otherwise clear. No wheezing, rhonchi, or crackles on exam. Cardio: regular rate and rhythm, no murmur Abdomen: soft, nondistended, BS normal and active x4. Denies tenderness. No guarding or grimacing Musculoskeletal: not assessed Extremity: not assessed Neurologic: not assessed Skin: No rashes, ulcerations, or suspicious lesions Mental Status: Alert and oriented x3. Normal mood and affect Assessment/Plan 1. Bronchitis (J40: Bronchitis, not specified as acute or chronic) Please follow up with your PCP in 3-5 days. You were seen in regards to recurrent, or ongoing cough for several weeks. Based on exam today, will treat for bronchitis. Zithromax sent to pharmacy in addition to tessalon as needed for coughing. Continue to monitor. If you develop high fever, weakness, or worsening symptoms see your PCP or return. If you develop SOB, difficulty breathing or worsening, go to the ER for evaluation. Ordered: azithromycin, = 1 packet(s), Oral, As Directed, as directed on package labeling, X 5 day(s), # 6 tab(s), Refills(s) 0, Pharmacy: [facility], 166, cm, 02/12/23 14:16:00 EDT, Height/Length Dosing, 65.3, kg, 02/12/23 14:16:00 EDT, Weight Dosing benzonatate, 100 mg = 1 cap(s), Oral, TID, X 7 day(s), # 21 cap(s), Refills(s) 0, Pharmacy: [facility], 166, cm, 02/12/23 14:16:00 EDT, Height/Length Dosing, 65.3, kg, 02/12/23 14:16:00 EDT, Weight Dosing Follow-up With When Contact Information Zbigniew KATEYulissa [address] [place] [place] [address], [address] [place] [id number]- Additional Instructions: Patient Education Acute Bronchitis, Adult Problem List/Past Medical History Ongoing No chronic problems Historical No qualifying data Procedure/Surgical History Dental, Tonsillectomy and adenoidectomy. Medications Tessalon 100 mg Cap, 100 mg= 1 cap(s), Oral, TID Zithromax 250 mg Tab, 1 packet(s), Oral, As Directed Allergies penicillin (Hives) Social History Tobacco - Denies Tobacco Use, 08/21/2022 Never (less than 100 in lifetime) Tobacco Use:. Never Smokeless Tobacco Use:., 02/12/2023 Never (less than 100 in lifetime) Tobacco Use:. Never Smokeless Tobacco Use:., 08/21/2022 Immunizations Vaccine Date Status Comments influenza virus vaccine, inactivated - Not Given Postpone due to refusal SARS-CoV-2 mRNA (tozinameran 5y-11y) vac - Not Given Postpone due to refusal influenza virus vaccine, inactivated - Not Given Postpone due to refusal SARS-CoV-2 mRNA (tozinameran 5y-11y) vac - (more content not included)... Normal [facility] Comment on above: Result Comment: Elec tronically Signed By: Alvin NICOLAS, Wiley Mike\.br\Date and Time Signed: 02/12/23 14:40 EDT Patient Educationon 02-13-20 Patient Education Pulmonary Medicine Acute Bronchitis, Adult Acute bronchitis is sudden inflammation of the main airways (bronchi) that come off the windpipe (trachea) in the lungs. The swelling causes the airways to get smaller and make more mucus than normal. This can make it hard to breathe and can cause coughing or noisy breathing (wheezing). Acute bronchitis may last several weeks. The cough may last longer. Allergies, asthma, and exposure to smoke may make the condition worse. What are the causes? This condition can be caused by germs and by substances that irritate the lungs, including: ? Cold and flu viruses. The most common cause of this condition is the virus that causes the common cold. ? Bacteria. This is less common. ? Breathing in substances that irritate the lungs, including: ? Smoke from cigarettes and other forms of tobacco. ? Dust and pollen. ? Fumes from household cleaning products, gases, or burned fuel. ? Indoor or outdoor air pollution. What increases the risk? The following factors may make you more likely to develop this condition: ? A weak body's defense system, also called the immune system. ? A condition that affects your lungs and breathing, such as asthma. What are the signs or symptoms? Common symptoms of this condition include: ? Coughing. This may bring up clear, yellow, or green mucus from your lungs (sputum). ? Wheezing. ? Runny or stuffy nose. ? Having too much mucus in your lungs (chest congestion). ? Shortness of breath. ? Aches and pains, including sore throat or chest. How is this diagnosed? This condition is usually diagnosed based on: ? Your symptoms and medical history. ? A physical exam. You may also have other tests, including tests to rule out other conditions, such as pneumonia. These tests include: ? A test of lung function. ? Test of a mucus sample to look for the presence of bacteria. ? Tests to check the oxygen level in your blood. ? Blood tests. ? Chest X-ray. How is this treated? Most cases of acute bronchitis clear up over time without treatment. Your health care provider may recommend: ? Drinking more fluids to help thin your mucus so it is easier to cough up. ? Taking inhaled medicine (inhaler) to improve air flow in and out of your lungs. ? Using a vaporizer or a humidifier. These are machines that add water to the air to help you breathe better. ? Taking a medicine that thins mucus and clears congestion (expectorant). ? Taking a medicine that prevents or stops coughing (cough suppressant). It is notcommon to take an antibiotic medicine for this condition. Follow these instructions at home: ? Take [id number] and prescription medicines only as told by your health care provider. ? Use an inhaler, vaporizer, or humidifier as told by your health care provider. ? Take two teaspoons (10 mL) of honey at bedtime to lessen coughing at night. ? Drink enough fluid to keep your urine pale yellow. ? Do not use any products that contain nicotine or tobacco. These products include cigarettes, chewing tobacco, and vaping devices, such as e-cigarettes. If you need help quitting, ask your health care provider. ? Get plenty of rest. ? Return to your normal activities as told by your health care provider. Ask your health care provider what activities are safe for you. ? Keep all follow-up visits. This is important. How is this prevented? To lower your risk of getting this condition again: ? Wash your hands often with soap and water for at least 20 seconds. If soap and water are not available, use hand bingo caller. ? Avoid contact with people who have cold symptoms. ? Try not to touch your mouth, nose, or eyes with your hands. ? Avoid breathing in smoke or chemical fumes. Breathing smoke or chemical fumes will make your condition worse. ? Get the flu shot every year. Contact a health care provider if: ? Your symptoms do not improve after 2 weeks. ? You have trouble coughing up the mucus. ? Your cough keeps you awake at night. ? You have a fever. Get help right away if you: ? Cough up blood. ? Feel pain in your chest. ? Have severe shortness of breath. ? Faint or keep feeling like you are going to faint. ? Have a severe headache. ? Have a fever or chills that get worse. These symptoms may represent a serious problem that is an emergency. Do not wait to see if the symptoms will go away. Get medical help right away. Call your local emergency services (911 in the [place] Do not drive yourself to the hospital. Summary ? Acute bronchitis is inflammation of the main airways (bronchi) that come off the windpipe (trachea) in the lungs. The swelling causes the airways to get smaller and make more mucus than normal. ? Drinking more fluids can help thin your mucus so it is easier to cough up. ? Take [id number] and prescription medicin (more content not included)... Normal [facility] (Inserted Image. Livia ble to display) February 12, 2023 [employer] [address] [address] [place] [address] Please excuse [employer]SC[employer] from work . Date and/or Time of Absence: From: 02/12/2023 To: 02/12/2023 May return to work on: 02/12/2023 Restrictions: None Comments: Please excuse due to an acute illness. Provider Signature: Wiley Esquivel PA-C Physician Regional Sales Director [address] [address] [place] [address] Normal [facility] Body fluid albumin measureme nt (mass/volume)Ordered By: Te Calles on 07-24-2022 Albumin (Body fld) [Mass/Vol] 4.3 g/dL 3.2-5.5 [facility] Cholesterol [Mass/volume] in Serum or PlasmaOrdered By: Te Calles on 07-24-2022 Cholesterol [Mass/Vol] 163 mg/dL 140-200 [facility] Comment on above: Chol less than 200 m g/dl low riskChol 201-239 mg/dl borderline riskChol 240 mg/dl and greater high risk Cholesterol in LDL Calc [Mas s/Vol]Ordered By: Te Calles on 07-24-2022 Cholesterol in LDL [Mass/Vol] 102 mg/dL 0-100 [facility] Comment on above: LDL ATP III CLASSIFI CATIONLDL less than 100 mg/dL OptimalLDL 100-129 mg/dL Near or above optimalLDL 130-159 mg/dL Borderline highLDL 160-189 mg/dL HighLDL greater than 189 mg/dL Very high Cholesterol in VLDL Calc [Ma ss/Vol]Ordered By: Te Calles on 07-24-2022 Cholesterol in VLDL [Mass/Vol] 13 mg/dL [facility] Creatinine and Glomerular fi ltration rate.predicted panel (S/P/Bld)Ordered By: Te Calles on 07-24-2022 Creatinine [Mass/Vol] 0.79 mg/dL 0.44-1.03 [facility] Estimated glomerular filtrat ion rate (GFR) non- AmericanOrdered By: Te Calles on 07-24-2022 GFR/1.73 sq M.predicted among non-blacks MDRD (S/P/Bld) [Vol rate/Area] > 60 mL/Min [facility] Globulin Calc (S) [Mass/Vol] Ordered By: Te Calles on 07-24-2022 Globulin (S) [Mass/Vol] 2.9 g/dL [facility] Laboratory - Chemistry and C hemistry - challengeOrdered By: eT Calles on 07-24-2022 Glucose [Mass/Vol] 85 mg/dL 70-100 [facility] No Panel InformationOrdered By: Te Calles on 07-24-2022 Estimated GFR () > 60 mL/Min [facility] Comment on above: GFR estimated refere nce range: According to KDOQI guidelines, <60 ml/min/1.73m2 is sufficient to diagnose a patient with chronic kidney disease. Pharmacy Creatinine Clearance (Chem N/A [facility] Triglycerides Reflex 65 mg/dL 35-149 [facility] Comment on above: TRIG ATP III CLASSIF ICATIONTRIG less than 150 mg/dL NormalTRIG 150-199 mg/dL Borderline highTRIG 200-500 mg/dL High TRIG greater than 500 mg/dL Very highStandard traceable to the Center for Disease Conrtrol and Prevention (CDC) test method. Protein [Mass/volume] in Ser um or PlasmaOrdered By: Te Calles on 07-24-2022 Protein [Mass/Vol] 7.2 g/dL 6.1-7.9 [facility] Serum or plasma alanine gregory otransferase measurement without P-5'-P (enzymatic activiOrdered By: Te Calles on 07-24-2022 ALT No additional P-5'-P [Catalytic activity/Vol] 14 U/L 10-60 [facility] Serum or plasma albumin/glob ulin mass ratioOrdered By: Te Calles on 07-24-2022 Albumin/Globulin [Mass ratio] 1.5 {ratio} [facility] Serum or plasma alkaline crissy sphatase measurement (enzymatic activity/volume)Ordered By: Te Calles on 07-24-2022 ALP [Catalytic activity/Vol] 53 U/L 32-92 [facility] Serum or plasma anion gap de terminationOrdered By: Te Calles on 07-24-2022 Anion gap [Moles/Vol] 17.0 mmol/L 6.0-15.0 [facility] Serum or plasma aspartate am inotransferase measurement (enzymatic activity/volume)Ordered By: Te Calles on 07-24-2022 AST [Catalytic activity/Vol] 18 U/L 10-42 [facility] Serum or plasma calcium desi urement (mass/volume)Ordered By: Te Calles on 07-24-2022 Calcium [Mass/Vol] 9.8 mg/dL 8.2-10.2 [facility] Serum or plasma chloride dorian surement (moles/volume)Ordered By: Te Calles on 07-24-2022 Chloride [Moles/Vol] 98 mmol/L 95-114 [facility] Serum or plasma high density lipoprotein (HDL) cholesterol measurementOrdered By: Te Calles on 07-24-2022 Cholesterol in HDL [Mass/Vol] 48 mg/dL 35-85 [facility] Comment on above: HDL CHOL ATP-III CLA SSIFICATION Cardiovascular RiskHDL > or equal to 60 mg/dL LOWHDL < 40 mg/dL HIGH Serum or plasma potassium me asurement (moles/volume)Ordered By: Te Calles on 07-24-2022 Potassium [Moles/Vol] 4.3 mmol/L 3.5-5.1 [facility] Serum or plasma sodium measu rement (moles/volume)Ordered By: Te Calles on 07-24-2022 Sodium [Moles/Vol] 136 mmol/L 136-146 [facility] Serum or plasma total biliru bin measurement (mass/volume)Ordered By: Te Calles on 07-24-2022 Bilirubin [Mass/Vol] 1.7 mg/dL 0.3-1.2 [facility] Comment on above: Samples from patient s who have taken Naproxen have shown spurious elevation in Total Bilirubin levels. A metabolite of Naproxen, O-desmethylnaproxen, has been shown to interfere with the Dinora method for measuring Total Bilirubin. Serum or plasma total carbon dioxide measurement (moles/volume)Ordered By: Teparker Calles on 07-24-2022 CO2 [Moles/Vol] 25.3 mmol/L 22.0-30.0 [facility] Serum or plasma total choles terol/high density lipoprotein (HDL) cholesterol mass ratOrdered By: Te Calles on 07-24-2022 Cholesterol.total/Chol esterol in HDL [Mass ratio] 3.4 {ratio} <5.0 [facility] Serum or plasma urea nitroge n measurement (mass/volume)Ordered By: Teparker Calles on 07-24-2022 Urea nitrogen [Mass/Vol] 11 mg/dL 06-29 [facility] Covid-19 PCR (CVDTBH)on 06-07 SARS-CoV-2 (COVID-19) RNA DWAIN+probe Ql (Unsp spec) Detected Critically abnormal NOT DETECTED [facility] Comment on above: Result Comment: This test is not yet approved or cleared by the [place] FDA. When there are no FDA-approved or cleared tests available, and other criteria are met, FDA can make tests available under an emergency access mechanism called an Emergency Use Authorization (EUA). The EUA for this test is supported by the [place] of Health and Human Service's (HHS's) declaration that circumstances exist to justify the emergency use of in vitro diagnostics for the detection and/or diagnosis of the virus that causes COVID-19. This EUA will remain in effect (meaning this test can be used) for the duration of the COVID-19 declaration justifying emergency of IVDs, unless it is terminated or revoked by FDA (after which the test may no longer be used). Performed By: #### C [facility] #### [facility] [address] [place] [address] Dr. Shay Sosa SYMPTOMATIC COVID-19 ANTIGEN on 06-22-2021 EUA Statement SEE BELOW Normal [facility] Comment on above: Result Comment: This test has not been FDA cleared or approved, but has been authorized by the FDA under an Emergency Use Authorization (EUA) for use by authorized laboratories certified under CLIA that meet the requirements to perform moderate or high complexity testing. This test has been authorized only for the detection of proteins from SARS-CoV-2, not for any other viruses or pathogens. The emergency use of this test is authorized for the duration of the declaration that circumstances exist justifying the authorization of emergency use of in vitro diagnostic tests for detection and/or diagnosis of Covid-19 under section 564(b)(1) of the Act, 21 U.S.C. 360bbb-3(b)(1), unless the declaration is terminated or authorization is revoked sooner. Performed By: #### C VDAGS #### [facility] [address] [place] [address] Dr. Shay Sosa SARS-CoV-2 (COVID-19) RNA DWAIN+probe Ql (Unsp spec) Positive Critically abnormal NEGATIVE [facility] Comment on above: Performed By: #### C VDAGS #### [facility] [address] [place] [address] Dr. Shay Sosa QUANTIFERON TB GOLD PLUS (NO N-INC)on 02-01-2021 Comment Incubation performed. Normal [facility] Comment on above: Performed By: #### Q NTTBG #### [facility] [address] [place] [address] Chaim Delia Criteria Comment Normal [facility] Comment on above: Result Comment: The QuantiFERON-TB Gold Plus result is determined by subtracting the Nil value from either TB antigen (Ag) tube. The mitogen tube serves as a control for the test. Performed By: #### Q NTTBG #### [facility] [address] [place] [address] Chaim Delia Mitogen Value 4.59 IU/mL Normal [facility] Comment on above: Performed By: #### Q NTTBG #### [facility] [address] [place] [address] Chaim Delia Nill Value 0.03 IU/mL Normal [facility] Comment on above: Performed By: #### Q NTTBG #### [facility] [address] [place] [address] Chaim Delia Quantiferon Gold Plus Negative Normal Negative [facility] Comment on above: Result Comment: Chem iluminescence immunoassay methodology Performed By: #### Q NTTBG #### [facility] [address] [place], [place] [id number] Chaim Lin TB1 Ag Value 0.03 IU/mL Normal [facility] Comment on above: Performed By: #### Q NTTBG #### [facility] [address] [place], [place] [id number] Chaim Lin TB2 Ag Value 0.02 IU/mL Normal [facility] Comment on above: Performed By: #### Q NTTBG #### [facility] [address] [place], [place] [id number] Chaim Lin MMR IMMUNITYon 01-30-2021 Mumps Abs, IgG 63.5 AU/mL Normal Immune >10.9 [facility] Comment on above: Result Comment: Nega tive <9.0 Equivocal 9.0 - 10.9 Positive >10.9 A positive result generally indicates past exposure to Mumps virus or previous vaccination. Performed By: #### M MRIMMU #### [facility] [address] [place] [address] Chaim Lin Rubella Antibodies, IgG 6.09 index Normal Immune >0.99 [facility] Comment on above: Result Comment: Non- immune <0.90 Equivocal 0.90 - 0.99 Immune >0.99 Performed By: #### M MRIMMU #### [facility] [address] [place] [address] Chaim Lin Rubeola Ab, IgG 57.0 AU/mL Normal Immune >16.4 [facility] Comment on above: Result Comment: Nega tive <13.5 Equivocal 13.5 - 16.4 Positive >16.4 Presence of antibodies to Rubeola is presumptive evidence of immunity except when acute infection is suspected. Performed By: #### M MRIMMU #### [facility] [address] [place], [place] [id number] Chaim Lin VARICELLA IGG ABon Varicella Zoster IgG 467 index Normal Immune >165 [facility] Comment on above: Result Comment: Nega tive <135 Equivocal 135 - 165 Positive >165 A positive result generally indicates exposure to the pathogen or administration of specific immunoglobulins, but it is not indication of active infection or stage of disease. Performed By: #### V ML #### [facility] [address] [place], [place] [address] Chaim Lin HEPATITIS B SURFACE ANTIBODY , QUANTon 01-28-2021 Hepatitis B Surf AB Quant 3.7 mIU/mL Critically low Immunity>9 .9 [facility] Comment on above: Result Comment: Stat us of Immunity Anti-HBs Level Inconsistent with Immunity 0.0 - 9.9 Consistent with Immunity >9.9 Performed By: #### H EPBSRF #### [facility] [address] [place], [place] [address] Chaim Lin Vital Signs Date Time Vital Sign Value Performing Clinician Facility 08-02-2023 12:37-0400 Blood Pressure Location Wiley Esquivel [facility] 08-02-2023 12:37-0400 Body temperature 98.6 [degF] Wiley Esquivel [facility] 08-02-2023 12:37-0400 Diastolic blood pressure 68 mm[Hg] Wiley Esquivel [facility] 08-02-2023 12:37-0400 Heart rate 80 /min Wiley Esquivel [facility] 08-02-2023 12:37-0400 Respiratory rate 18 /min Wiley Esquivel [facility] 08-02-2023 12:37-0400 SaO2% (BldA) [Mass fraction] 98 % Wiley Esquivel [facility] 08-02-2023 12:37-0400 Systolic blood pressure 118 mm[Hg] Wiley Esquivel [facility] 02-12-2023 14:12-0400 Blood Pressure Location Wiley Esquivel [facility] 02-12-2023 14:12-0400 Body temperature 98.96 [degF] Wiley Esquivel [facility] 02-12-2023 14:12-0400 Diastolic blood pressure 74 mm[Hg] Wiley Esquivel [facility] 02-12-2023 14:12-0400 Heart rate 111 /min Wiley Esquivel [facility] 02-12-2023 14:12-0400 SaO2% (BldA) [Mass fraction] 97 % Wiley Esquivel [facility] 02-12-2023 14:12-0400 Systolic blood pressure 112 mm[Hg] Wiley Esquivel [facility] 08-21-2022 17:39-0500 Blood Pressure Location Cammie Cogar [facility] 08-21-2022 17:39-0500 Body temperature 98.42 [degF] Cammie Cogar [facility] 08-21-2022 17:39-0500 Diastolic blood pressure 72 mm[Hg] Cammie Cogar [facility] 08-21-2022 17:39-0500 Heart rate 101 /min Cammie Cogar [facility] 08-21-2022 17:39-0500 SaO2% (BldA) [Mass fraction] 100 % Cammie Cogar [facility] 08-21-2022 17:39-0500 Systolic blood pressure 114 mm[Hg] Cammie Cogar [facility] Encounters Encounter Date Encounter Type Care Provider Facility Start: 01-29-2024 End: 01-30-2024 ambulatory Edel R BILL [facility] Start: 01-29-2024 End: 01-29-2024 Patient encounter procedure Edel R BILL [facility] Start: 01-28-2024 End: 01-28-2024 ambulatory EDEL BILL Not Available Start: 01-14-2024 End: 01-15-2024 ambulatory Edel R BILL [facility] Start: 01-14-2024 End: 01-14-2024 Patient encounter procedure Edel R BILL [facility] Start: 11-05-2023 End: 11-05-2023 ambulatory EDEL BILL Not Available Start: 10-22-2023 End: 10-23-2023 ambulatory Edel R BILL [facility] Start: 10-22-2023 End: 10-22-2023 Patient encounter procedure Edel R BILL [facility] Start: 10-02-2023 End: 10-02-2023 ambulatory EDEL BILL Not Available Start: 08-02-2023 End: 08-03-2023 ambulatory Wiley Esquivel [facility] Start: 08-02-2023 End: 08-03-2023 ambulatory Wiley Esquivel Facility:[facility] Start: 08-02-2023 End: 08-02-2023 Lab Drop off Wiley Esquivel [facility] Start: 08-02-2023 End: 08-02-2023 Patient encounter procedure Wiley Esquivel [facility] Start: 07-30-2023 End: 07-30-2023 ambulatory Te Calles Facility:[facility] Start: 07-30-2023 End: 07-30-2023 ambulatory DO Te Calles Work Phone: [facility] Work Phone: Start: 07-30-2023 End: 07-30-2023 Patient encounter procedure DO Te Calles Work Phone: [facility] Start: 02-12-2023 End: 02-13-2023 ambulatory Wiley Esquivel Facility:[facility] Start: 02-12-2023 End: 02-12-2023 Patient encounter procedure Wiley Esquivel [facility] Start: 08-21-2022 End: 08-21-2022 Lab Drop off Cammie Neal [facility] Start: 08-21-2022 End: 08-21-2022 Patient encounter procedure Cammie Neal [facility] Start: 07-24-2022 End: 07-24-2022 ambulatory DO Te Calles Work Phone: [facility] Work Phone: Start: 07-24-2022 End: 07-24-2022 Departed Referred DO Te Francisdillon Work Phone: [facility] [address] Start: 06-22-2021 End: 06-22-2021 ambulatory MURALI VILLALTA Facility:[facility] Start: 01-27-2021 End: 01-27-2021 ambulatory MURALI VILLALTA Facility:[facility] Procedures Date Procedure Procedure Detail Performing Clinician Dental Cammie Neal Tonsillectomy and adenoidectomy Cammie Neal Immunizations Immunization Date Immunization Notes Care Provider Fa cili 08-17-2020 influenza virus vaccine, unspecified formulation Cammie Cogar [facility] 09-08-2019 varicella virus vaccine Cammie Cogar [facility] 05-21-2019 varicella virus vaccine Cammie Cogar [facility] 03-22-2017 meningococcal ACWY vaccine, unspecified formulation Cammie Cogar [facility] 08-26-2012 HPV, unspecified formulation Cammie Cogar [facility] 01-08-2001 DTaP, unspecified formulation Cammie Cogar [facility] 01-08-2001 haemophilus influenz ae type b vaccine, PRP-OMP conjugate Cammie Cogar [facility] 01-08-2001 hepatitis B vaccine, pediatric or pediatric/adolescent dosage Cammie Cogar [facility] 01-08-2001 measles, mumps and rubella virus vaccine Cammie Cogar [facility] 01-08-2001 poliovirus vaccine, unspecified formulation Cammie Cogar [facility] 03-13-2000 DTaP, unspecified formulation Cammie Cogar [facility] 03-13-2000 haemophilus influenz ae type b vaccine, PRP-OMP conjugate Cammie Cogar [facility] 01-10-2000 DTaP, unspecified formulation Cammie Cogar [facility] 01-10-2000 haemophilus influenz ae type b vaccine, PRP-OMP conjugate Cammie Cogar [facility] 01-10-2000 hepatitis B vaccine, pediatric or pediatric/adolescent dosage Cammie Neal [facility] 01-10-2000 poliovirus vaccine, unspecified formulation Cammie Cogar [facility] 1999 DTaP, unspecified formulation Cammie Cogar [facility] 1999 haemophilus influenz ae type b vaccine, PRP-OMP conjugate Cammie Ángel [facility] 1999 hepatitis B vaccine, pediatric or pediatric/adolescent dosage Cammie Cogar [facility] 1999 poliovirus vaccine, unspecified formulation Cammie Cogar [facility] NEGATED: Highlighted row has not occurred!02-12-2023 influenza virus vaccine, unspecified formulation Wiley Esquivel [facility] NEGATED: Highlighted row has not occurred!02-12-2023 SARS-CoV-2 mRNA (tozinameran 5y-11y) vaccine Wiley Esquivel [facility] NEGATED: Highlighted row has not occurred!08-21-2022 influenza virus vaccine, unspecified formulation Cammie Neal [facility] NEGATED: Highlighted row has not occurred!08-21-2022 SARS-CoV-2 mRNA (tozinameran 5y-11y) vaccine Cammie Neal [facility] Payers Date Payer Category Payer Unknown [id number] 1999 Unknown [id number] 1999 Unknown [id number] 1999 Unknown [id number] 1999 Unknown [id number] 1999 Unknown [id number] 1999 Unknown [id number] 1999 Unknown [id number] 1999 Unknown [id number] 1999 Unknown [id number] 1999 Unknown [id number] [id number] 1999 Unknown [id number] 1959 Self-pay 1960 Unknown [id number] Private Health Insurance [employer] [id number] Unknown [id number] Unknown MMO [id number] Unknown [id number] Social History Date Type Detail [facility] Work Phone: Start: 2000 Sex Assigned At Female [facility] Start: 08-21-2022 End: 08-02-2023 Tobacco smoking status Never smoked tobacco (finding) [facility] Tobacco smoking status Never [facility] Sex Assigned At Female [facility] Functional Status Date Assessment Result Facility 08-02-2023 Functional Status N/A [facility] 02-12-2023 Functional Status N/A [facility] 08-21-2022 Functional Status N/A [facility] Clinical Notes 08-21-2022 to 01-29-2024 Note Date & Type Note Facility 01-29-2024 Evaluation + Plan note Diagnostic Tests PendingCA 125 01/29/24Alpha Fetoprotein Tumor Marker 01/29/24 [facility] 10-22-2023 Evaluation + Plan note Diagnostic Tests PendingFSH and LH 10/22/23DHEAS 10/22/23Anti-Mullerian Hormone (AMH) 10/22/23 [facility] 08-02-2023 Hospital Discharg e instructions Patient Education 08/02/2023 13:00:09 Dysuria Dysuria Dysuria is pain or discomfort during urination. The pain or discomfort may be felt in the part of the body that drains urine from the bladder (urethra) or in the surrounding tissue of the genitals. The pain may also be felt in the groin area, lower abdomen, or lower back. You may have to urinate frequently or have the sudden feeling that you have to urinate (urgency). Dysuria can affect anyone, but it is more common in females. Dysuria can be caused by many different things, including: Urinary tract infection. Kidney stones or bladder stones. Certain STIs (sexually transmitted infections), such as chlamydia. Dehydration. Inflammation of the tissues of the vagina. Use of certain medicines. Use of certain soaps or scented products that cause irritation. Follow these instructions at home: Medicines Take fhee-vnl-vbhdvtj and prescription medicines only as told by your health care provider. If you were prescribed an antibiotic medicine, take it as told by your health care provider. Do not stop taking the antibiotic even if you start to feel better. Eating and drinking Drink enough fluid to keep your urine pale yellow. Avoid caffeinated beverages, tea, and alcohol. These beverages can irritate the bladder and make dysuria worse. In males, alcohol may irritate the prostate. General instructions Watch your condition for any changes. Urinate often. Avoid holding urine for long periods of time. If you are female, you should wipe from front to back after urinating or having a bowel movement. Use each piece of toilet paper only once. Empty your bladder after sex. Keep all follow-up visits. This is important. If you had any tests done to find the cause of dysuria, it is up to you to get your test results. Ask your health care provider, or the department that is doing the test, when your results will be ready. Contact a health care provider if: You have a fever. You develop pain in your back or sides. You have nausea or vomiting. You have blood in your urine. You are not urinating as often as you usually do. Get help right away if: Your pain is severe and not relieved with medicines. You cannot eat or drink without vomiting. You are confused. You have a rapid heartbeat while resting. You have shaking or chills. You feel extremely weak. Summary Dysuria is pain or discomfort while urinating. Many different conditions can lead to dysuria. If you have dysuria, you may have to urinate frequently or have the sudden feeling that you have to urinate (urgency). Watch your condition for any changes. Keep all follow-up visits. Make sure that you urinate often and drink enough fluid to keep your urine pale yellow. This information is not intended to replace advice given to you by your health care provider. Make sure you discuss any questions you have with your health care provider. Document Revised: 05/05/2021 Document Reviewed: 05/05/2021 [employer] Patient Education 2022 [employer]. Follow Up Care 08/02/2023 11:51:58 With:Yulissa Coy CNP Address: [address] [place] [address], [address] [place] [id number]- When: Unknown [facility] 08-02-2023 Evaluation + Plan note Diagnostic Tests PendingUrine Culture 08/02/23 [facility] 02-12-2023 Hospital Discharg e instructions Patient Education 02/12/2023 14:40:02 Acute Bronchitis, Adult Acute Bronchitis, Adult Acute bronchitis is sudden inflammation of the main airways (bronchi) that come off the windpipe (trachea) in the lungs. The swelling causes the airways to get smaller and make more mucus than normal. This can make it hard to breathe and can cause coughing or noisy breathing (wheezing). Acute bronchitis may last several weeks. The cough may last longer. Allergies, asthma, and exposure to smoke may make the condition worse. What are the causes? This condition can be caused by germs and by substances that irritate the lungs, including: Cold and flu viruses. The most common cause of this condition is the virus that causes the common cold. Bacteria. This is less common. Breathing in substances that irritate the lungs, including: ?Smoke from cigarettes and other forms of tobacco. ?Dust and pollen. ?Fumes from household cleaning products, gases, or burned fuel. ?Indoor or outdoor air pollution. What increases the risk? The following factors may make you more likely to develop this condition: A weak body's defense system, also called the immune system. A condition that affects your lungs and breathing, such as asthma. What are the signs or symptoms? Common symptoms of this condition include: Coughing. This may bring up clear, yellow, or green mucus from your lungs (sputum). Wheezing. Runny or stuffy nose. Having too much mucus in your lungs (chest congestion). Shortness of breath. Aches and pains, including sore throat or chest. How is this diagnosed? This condition is usually diagnosed based on: Your symptoms and medical history. A physical exam. You may also have other tests, including tests to rule out other conditions, such as pneumonia. These tests include: A test of lung function. Test of a mucus sample to look for the presence of bacteria. Tests to check the oxygen level in your blood. Blood tests. Chest X-ray. How is this treated? Most cases of acute bronchitis clear up over time without treatment. Your health care provider may recommend: Drinking more fluids to help thin your mucus so it is easier to cough up. Taking inhaled medicine (inhaler) to improve air flow in and out of your lungs. Using a vaporizer or a humidifier. These are machines that add water to the air to help you breathe better. Taking a medicine that thins mucus and clears congestion (expectorant). Taking a medicine that prevents or stops coughing (cough suppressant). It is notcommon to take an antibiotic medicine for this condition. Follow these instructions at home: Take fnxx-vpt-tqojrys and prescription medicines only as told by your health care provider. Use an inhaler, vaporizer, or humidifier as told by your health care provider. Take two teaspoons (10 mL) of honey at bedtime to lessen coughing at night. Drink enough fluid to keep your urine pale yellow. Do not use any products that contain nicotine or tobacco. These products include cigarettes, chewing tobacco, and vaping devices, such as e-cigarettes. If you need help quitting, ask your health care provider. Get plenty of rest. Return to your normal activities as told by your health care provider. Ask your health care provider what activities are safe for you. Keep all follow-up visits. This is important. How is this prevented? To lower your risk of getting this condition again: Wash your hands often with soap and water for at least 20 seconds. If soap and water are not available, use hand bingo caller. Avoid contact with people who have cold symptoms. Try not to touch your mouth, nose, or eyes with your hands. Avoid breathing in smoke or chemical fumes. Breathing smoke or chemical fumes will make your condition worse. Get the flu shot every year. Contact a health care provider if: Your symptoms do not improve after 2 weeks. You have trouble coughing up the mucus. Your cough keeps you awake at night. You have a fever. Get help right away if you: Cough up blood. Feel pain in your chest. Have severe shortness of breath. Faint or keep feeling like you are going to faint. Have a severe headache. Have a fever or chills that get worse. These symptoms may represent a serious problem that is an emergency. Do not wait to see if the symptoms will go away. Get medical help right away. Call your local emergency services (911 in the [place] Do not drive yourself to the hospital. Summary Acute bronchitis is inflammation of the main airways (bronchi) that come off the windpipe (trachea) in the lungs. The swelling causes the airways to get smaller and make more mucus than normal. Drinking more fluids can help thin your mucus so it is easier to cough up. Take iskq-hsi-uvricia and prescription medicines only as told by your health care provider. Do not use any products that contain nicotine or tobacco. These products include cigarettes, chewing tobacco, and vaping devices, such as e-cigarettes. If you need help quitting, ask your health care provider. Contact a health care provider if your symptoms do not improve after 2 weeks. This information is not intended to replace advice given to you by your health care provider. Make sure you discuss any questions you have with your health care provider. Document Revised: 01/24/2022 Document Reviewed: 01/24/2022 [employer] Patient Education 2022 [employer]. Follow Up Care 02/12/2023 13:54:31 With:Yulissa Coy CNP Address: [address] [place] [place] [address], [address] [place] [address]- When: Unknown [facility] 08-21-2022 Hospital Discharg e instructions Patient Education 08/21/2022 17:56:42 Urinary Tract Infection, Adult Urinary Tract Infection, Adult A urinary tract infection (UTI) is an infection of any part of the urinary tract. The urinary tract includes the kidneys, ureters, bladder, and urethra. These organs make, store, and get rid of urine in the body. Your health care provider may use other names to describe the infection. An upper UTI affects the ureters and kidneys (pyelonephritis). A lower UTI affects the bladder (cystitis) and urethra (urethritis). What are the causes? Most urinary tract infections are caused by bacteria in your genital area, around the entrance to your urinary tract (urethra). These bacteria grow and cause inflammation of your urinary tract. What increases the risk? You are more likely to develop this condition if: You have a urinary catheter that stays in place (indwelling). You are not able to control when you urinate or have a bowel movement (you have incontinence). You are female and you: ?Use a spermicide or diaphragm for control. ?Have low estrogen levels. ?Are . You have certain genes that increase your risk (genetics). You are sexually active. You take antibiotic medicines. You have a condition that causes your flow of urine to slow down, such as: ?An enlarged prostate, if you are male. ?Blockage in your urethra (stricture). ?A kidney stone. ?A nerve condition that affects your bladder control (neurogenic bladder). ?Not getting enough to drink, or not urinating often. You have certain medical conditions, such as: ?Diabetes. ?A weak disease-fighting system (immunesystem). ?Sickle cell disease. ?Gout. ?Spinal cord injury. What are the signs or symptoms? Symptoms of this condition include: Needing to urinate right away (urgently). Frequent urination or passing small amounts of urine frequently. Pain or burning with urination. Blood in the urine. Urine that smells bad or unusual. Trouble urinating. Cloudy urine. Vaginal discharge, if you are female. Pain in the abdomen or the lower back. You may also have: Vomiting or a decreased appetite. Confusion. Irritability or tiredness. A fever. Diarrhea. The first symptom in older adults may be confusion. In some cases, they may not have any symptoms until the infection has worsened. How is this diagnosed? This condition is diagnosed based on your medical history and a physical exam. You may also have other tests, including: Urine tests. Blood tests. Tests for sexually transmitted infections (STIs). If you have had more than one UTI, a cystoscopy or imaging studies may be done to determine the cause of the infections. How is this treated? Treatment for this condition includes: Antibiotic medicine. Ruky-hii-wjbryvu medicines to treat discomfort. Drinking enough water to stay hydrated. If you have frequent infections or have other conditions such as a kidney stone, you may need to see a health care provider who specializes in the urinary tract (urologist). In rare cases, urinary tract infections can cause sepsis. Sepsis is a life-threatening condition that occurs when the body responds to an infection. Sepsis is treated in the hospital with IV antibiotics, fluids, and other medicines. Follow these instructions at home: Medicines Take jgzk-cbg-meeuftc and prescription medicines only as told by your health care provider. If you were prescribed an antibiotic medicine, take it as told by your health care provider. Do not stop using the antibiotic even if you start to feel better. General instructions Make sure you: ?Empty your bladder often and completely. Do not hold urine for long periods of time. ?Empty your bladder after sex. ?Wipe from front to back after a bowel movement if you are female. Use each tissue one time when you wipe. Drink enough fluid to keep your urine pale yellow. Keep all follow-up visits as told by your health care provider. This is important. Contact a health care provider if: Your symptoms do not get better after 1 2 days. Your symptoms go away and then return. Get help right away if you have: Severe pain in your back or your lower abdomen. A fever. Nausea or vomiting. Summary A urinary tract infection (UTI) is an infection of any part of the urinary tract, which includes the kidneys, ureters, bladder, and urethra. Most urinary tract infections are caused by bacteria in your genital area, around the entrance to your urinary tract (urethra). Treatment for this condition often includes antibiotic medicines. If you were prescribed an antibiotic medicine, take it as told by your health care provider. Do not stop using the antibiotic even if you start to feel better. Keep all follow-up visits as told by your health care provider. This is important. This information is not intended to replace advice given to you by your health care provider. Make sure you discuss any questions you have with your health care provider. Document Released: 07/03/2006 Document Revised: 09/10/2019 Document Reviewed: 04/02/2019 [employer] Patient Education 2020 [employer]. Follow Up Care 08/21/2022 16:17:58 With:Yulissa Coy CNP Address: [address] [place] [address], [facility] [place] [address] [place] [id number]- When: Unknown [facility] 08-21-2022 Evaluation + Plan note Diagnostic Tests PendingUrine Culture 08/21/22 [facility] Evaluation note No assessment inform ation available [facility] Work Phone: Hospital course Narrative No data available for this section [facility] Hospital Discharge instructions No data available for this section [facility] Progress note No data available for this section [facility] Summary Purpose Family History No Family History Records Found No data available for this section No data available for this section No data available for this section No Family History Records Found No data available for this section No data available for this section No data available for this section No Family History Records Found No data available for this section No Family History Records Found Advance Directives No Advanced Directives Records Found Advance Directive Response Recorded Date/ Time Advance Directives No August 08, 2023 2:47pm Chief Complaint and Reason for Visit Chief Complaint new hire labs Chief Complaint flu vaccine Additional Source Comments INFORMATION SOURCE (unrecogn ized section and content) DATE CREATED AUTHOR 07/09/2021 [facility] DATE CREATED AUTHOR AUTHOR'S ORGANIZ ATION 08/09/2023 [facility] DATE CREATED AUTHOR AUTHOR'S ORGANIZ ATION 01/29/2024 [facility] EPIC DATE CREATED AUTHOR AUTHOR'S ORGANIZ ATION 01/31/2024 [facility] Care Teams (unrecognized sec tion and content) Team Status: Inactive Member Role Status Dates Te Calles DO [facility] Attending Provider Active Goals (unrecognized section and content) Goals may be documented in a n alternate section No data available for this section No data available for this section No data available for this section No data available for this section No data available for this section No data available for this sectionGoals may be documented in an alternate section No data available for this section No data available for this section No data available for this section No data available for this section FOR RECORDS PERTAINING TO PATIENTS WHO ARE OR HAVE BEEN ENROLLED IN A CHEMICAL DEPENDENCY/SUBSTANCEABUSE PROGRAM, SOME INFORMATION MAY BE OMITTED. This clinical summary was aggregated from multiple sources. Caution should be exercised in using it in the provision of clinical care. This summary normalizes information from multiple sources, and as a consequence, information in this document may materially change the coding, format and clinical context of patient data. In addition, data may be omitted in some cases. CLINICAL DECISIONS SHOULD BE BASED ON THE PRIMARY CLINICAL RECORDS. [employer] provides no warranty or guarantee of the accuracy or completeness of information in this document.
[2024-02-21] MEDS: LACTATED RINGER'S SOLUTION 1,000 ML 50 ML IV (09:54)
[2024-02-21 09:56] LABS: HCG Quantitative <1 mIU/mL
--- NOTE | 2024-02-21 13:03 | P.ON_ITS ---
Brief Operative Note Date of procedure: 02/21/24 Pre-op diagnosis general: pelvic pain, rt ovarian cyst Post-op diagnosis: other (significant endometriosis on anterior and posterior culdesac, endometrial implants on both ovaries) Procedure: NAME OF PROCEDURE: [diagnostic laparoscopy ] significant endometrial implants noted with involvement of both ovaries as well as posterior and anterior culdesac PROCEDURE: The patient was taken back to the Operating Room where she was placed in dorsal lithotomy position after given general anesthesia. The patient was prepped and draped in normal sterile fashion. A sponge stick was placed into the patient's vagina. Attention was turned to the patient's abdomen, where a small umbilical incision was made. The fascia was tented using Dank clamps and the fascia was entered sharply. Confirmation of intraabdominal placement of the 10 mm port was confirmed under direct visualization using a laparoscope. The patient's abdomen was then insufflated using CO2 gas with approximately 4 liters. A second port was placed left laterally, this was done under direct visualization with a 5 mm port. Survey of the patient's abdomen demonstrated normal liver and gallbladder. Survey of the patient's pelvic anatomy demonstrated normal appearing rt and lt ovary and tubes as well as normal appearing uterus. endometrial implants could be noted posterior and anterior culdesac, endometrial implants noted on both ovaries. no evidence of any pelvic disease was seen, normal appearing pelvic cavity. All instruments were removed from the patient's abdomen. The patient's abdomen was deinsufflated of CO2 gas. The patient tolerated the procedure well. Sponge stick was removed from the patient's vagina. The patient's infraumbilical fascia was closed using #0 Vicryl on a GI needle. The patient's skin was closed laterally and infraumbilically using 4-0 Vicryl. The patient tolerated the procedure well. Sponge, lap and needle counts were correct x 2. The patient was taken to Recovery Room in stable condition. Anesthesia: GETA Surgeon: Camilo Lobo Spray Technician: Dione Carrasco Estimated blood loss (mL): 250 Pathology: none sent Condition: stable Disposition: PACU Urinary Catheter Management Urinary Catheter Management Urethral: Cath placed during this visit: no
[2024-02-21] MEDS: HYDROMORPHONE HCL 0.5 MG/0.5 ML SYRINGE IV (13:12)
[2024-02-21] MEDS: HYDROCODONE/ACET 5-325 MG TABLET 1 TAB PO (13:27)
--- NOTE | 2024-02-21 14:34 | PC.NURSE ---
1415:pt ambulates to bathroom,pt voids without difficulty.
== END 2024-02-21 14:40 | disposition home or self-care (01) ==
PROVIDERS: PCP Nurse Practitioner Family; Visit Provider Obstetrics & Gynecology
PROC: (CPT 00840; principal; 2024-02-21 10:15)
DX: R10.2 Pelvic and perineal pain (principal); N83.291 Other ovarian cyst, right side; N80.103 Endometriosis of bilateral ovaries, unspecified depth; N80.319 Endometriosis of the anterior cul-de-sac, unspecified depth; N80.329 Endometriosis of the posterior cul-de-sac, unspecified depth
CPT/HCPCS: 00840; 49320; 36415; 84702; 85025; J1094; J1170; J2704

== ENCOUNTER 2024-04-22 20:54 | Outpatient (REF) | payer OTHER, SELFPAY ==
--- OUTSIDE RECORDS SUMMARY | 2024-04-22 20:57 | XMS_ITS | CCD ---
Author Organization [facility] Care Team Providers Care [place]ab[place] Name Role Phone AMBAR, MURALI Admitting Unavailable AMBAR, MURALI Attending Unavailable AMBAR, MURALI Consulting Unavailable AMBAR, MURALI Admitting Unavailable AMBAR, MURALI Attending Unavailable AMBAR, MURALI Consulting Unavailable DO Te Calles Attending Provider [phone] Yulissa Coy Primary Care Physician [phone] DO Te Calles Attending Provider VEGA LOBOY Attending Unavailable YAMIL, DEEL Attending Unavailable YAMIL, EDEL Attending Unavailable Wiley Esquivel Attending Unavailable Wiley Esquivel Attending Unavailable YAMIL, Edel R Admitting Unavailable YAMIL, Edel R Attending Unavailable YAMIL, Edel R Referring Unavailable YAMIL, Edel R Attending Unavailable YAMIL, Edel R Admitting Unavailable YAMIL, Edel R Admitting Unavailable YAMIL, Edel R Attending Unavailable Wiley Esquivel Admitting Unavailable Wiley Esquivel Attending Unavailable Wiley Esquivel Admitting Unavailable Wiley Esquivel Attending Unavailable YAMIL, Edel R Admitting Unavailable YAMIL, Edel R Attending Unavailable YAMIL, Edel R Referring Unavailable Yamil, Edel Attending Unavailable Yamil, Edel Admitting Unavailable Kuns - [facility] P Admitting Unavailable Kuns - CHCTe Attending Unavailable Yamil, Edel Attending Provider [phone] NATALIIA MO Attending Unavailable NATALIIA MO Attending Unavailable Allergies Allergy Classification Reported Allergen(s) Allergy Type Date of Onset Reaction(s) Facility (12 sources) Penicillin; Translations: [penicillin] Drug Allergy Weal (disorder) [facility] (1 source) No Known Medication Allergies; Translations: [No Known Medication Allergies] Propensity to adverse reactions (disorder) [facility] Repository Medications Current Medications Medication Drug Class(es) Dates Sig (Normalized) Sig (Original) azithromycin 250 mg oral tablet (1 source) Macrolide Antimicrobial Start: 02-12-2023 End: 02-17-2023 Zithromax 250 mg Tab = 1 packet(s), Oral, As Directed, as directed on package labeling, X 5 day(s), # 6 tab(s), Refills(s) 0, Pharmacy: [facility], 166, cm, 02/12/23 14:16:00 EDT, Height/Length [...] day(s), # 21 cap(s), Refills(s) 0, Pharmacy: [facility], 166, cm, 02/12/23 14:16:00 EDT, Height/Length Dosing, 65.3, kg, 02/12/23 14:16:00 EDT, Weight Dosing Start Date: 02/12/23 Stop Date: 02/19/23 Status: Ordered phenazopyridine hydrochloride 100 mg oral tablet (3 sources) Start: 08-02-2023 End: 08-05-2023 take 1 tablet by mouth three times daily Pyridium 100 mg Tab 100 mg = 1 tab(s), Oral, TID, X 3 day(s), # 9 tab(s), Refills(s) 0, Pharmacy: [facility], 165, cm, 08/02/23 12:41:00 EDT, Height/Length Dosing, 60, kg, 08/02/23 12:41:00 EDT, Weight Dosing Start Date: 08/02/23 Stop Date: 08/05/23 Status: Ordered sulfamethoxazole 800 mg / trimethoprim 160 mg oral tablet (2 sources) Dihydrofolate Reductase Inhibitor Antibacterial, Sulfonamide Antimicrobial Start: 08-21-2022 End: 08-24-2022 Bactrim D.S. 800 mg-160 mg Tab 1 tab(s), Oral, BID for 3 day(s), 6 tab(s), Refill(s) 0, [facility], 168, cm, 08/21/22 17:43:00 EST, Height/Length Dosing, 68.1, kg, 08/21/22 17:43:00 EST, Weight Dosing Start Date: 08/21/22 Stop Date: 08/24/22 Status: Ordered Problems Active Problems Problem Classification Problem Date Documented Da te Episodic/Chronic Chronic obstructive pulmonary disease and bronchiectasis (1 source) Bronchitis; Translations: [Bronchitis, not specified as acute or chronic] Onset: 02-12-2023 Episodic Endometriosis (1 source) Endometriosis, unspecified; Translations: [Endometriosis, unspecified] Onset: 03-18-2024 Chronic Genitourinary symptoms and ill-defined conditions (3 sources) Dysuria; Translations: [Dysuria] Onset: 08-02-2023 Episodic Unclassified (2 sources) CONTACT W/AND (SUSP) EXPOS COVID-19; Translations: [CONTACT W/AND (SUSP) EXPOS COVID-19] Onset: 07-09-2021 Unclassified (1 source) New Patient Onset: 03-18-2024 Urinary tract infections (2 sources) Urinary tract [...] Test Name Value Interpretation Reference Range Facility Irvin 02-21-2024 L Specimen: [id number] Received: 02/25/24 Status: VERENA Garcia Num: [id number] Spec Type: Surgical Subm Dr: Edel Lobo Tissues: A Skin Tag or debridement (NAVAL SKIN TAG) Procedures: HE, Gross/Micro L3 Age/ Patient Sex Location Account Attending Physician Oscar Sandoval LABELL [id number] Edel Lobo SPEC NUM: [id number] RECD: 02/25/24 STATUS: VERENA GARCIA NUM: [id number] TIAN: 02/21/[address]: Edel Lobo ENTERED: 02/25/[address]: García,Lab SPEC TYPE: Surgical DEPT: LYNNE FRANCO ORDERED: HE, Gross/Micro L3 ORDERED: HE, Gross/Micro L3 Pathological Diagnosis Skin, naval, excision: -Small and focally slightly irritated skin tag (benign fibroepithelial polyp) -No evidence of malignancy, or any other specific or significant abnormality observed Clinical Information Pelvic pain, complex ovarian cyst Gross Description Received in formalin, labeled with the patient's name, date of and naval skin tag is a 0.6 x 0.4 x 0.3 cm pale-ingram to white polypoid portion of skin. The presumed resection margin is inked blue and the specimen is bisected. Submitted entirely in A1. CPT Codes 78799 Specimen: [id number] Received: 02/25/24 Status: VERENA Garcia Num: [id number] Spec Type: Surgical Subm Dr: Edel Lobo Tissues: A Skin Tag or debridement (NAVAL SKIN TAG) Procedures: HE, Gross/Micro L3 Patient: Oscar Sandoval [id number] (Continued) Signed (signature on file) Vickie Sosa MD 02/26/241800 Normal [facility] AFPon 01-30-2024 AFP.tumor marker [Mass/Vol] ng/mL Invalid Interpretation Code 0.0-4.7 [facility] Comment on above: Result Comment: [facility] Electrochemiluminescence Immunoassay (ECLIA) Values obtained with different assay methods or kits cannot be used interchangeably. Results cannot be interpreted as absolute evidence of the presence or absence of malignant disease. This test is not interpretable in females. Performed at: [address] [id number] PhD Bryan Ruelas Performed By: #### 2 450796, 0354442, [id number] ####[facility] [address] [place] [address] [place] 125on 01-30-2024 Cancer Ag 125 Qn 28.5 unit/mL Invalid Interpretation Code 0.0-38.1 [facility] Comment on above: Result Comment: [facility] Electrochemiluminescence Immunoassay (ECLIA) Values obtained with different assay methods or kits cannot be used interchangeably. Results cannot be interpreted as absolute evidence of the presence or absence of malignant disease. Performed at: [facility] [address] [place], [place] [id number] PhD Bryan Ruelas Performed By: #### 2 101715, 2324694, 3101054 ####[facility] [address] [place] [address] Lab Miscellaneous-LCon 01-29 Lab Miscellaneous COMMENT Invalid Interpretation Code [facility] Comment on above: Result Comment: Test Ordered: [id number] hCG,Beta Subunit, Qnt hCG,Beta Subunit,Qnt,Serum <1 mIU/mL CB Female (Non-) 0 - 5 (Postmenopausal) 0 - 8 Female () Weeks of Gestation 3 6 - 71 4 10 - 750 5 098 - 5438 6 886 - 68077 7 6177 -768701 8 21062 -691146 9 27800 -983615 10 52859 -283013 12 91345 -950218 14 84975 - 00563 15 47092 - 99089 16 1308 - 76528 17 2239 - 71375 18 2492 - 45367 Sanjay ECLIA methodology Performed at: [facility] [address] [place] [address] [id number] PhD Bryan Ruelas Performed By: #### 1 [id number] ####[facility] [address] [place] [address] CEAon 01-29-2024 CEA 0.4 ng/mL Invalid Interpretation Code [facility] Comment on above: Result Comment: 'NON -SMOKER < 2.5' 'SMOKER < 5.0' The concentration of CEA in a given specimen determined by different manufacturers can vary due to differences in assay methods and reagent specificity. Values obtained with different assay methods cannot be used interchangeably. The methodology used to perform this test was chemiluminescence using [employer]'s Access CEA reagent. Performed By: #### 2 203119, 6046846, 7632069 ####[facility] [address] [place] [address] CHEMISTRYOrdered By: SYSTEM SYSTEM on 01-29-2024 CEA [...] to perform this test was chemiluminescence using [employer]'s Access CEA reagent. Consent for Treatmenton 01-06 Consent for Treatment [id number]#1.00TIFF Normal [facility] Lab Miscellaneous-LCon 01-28 Test Code 189770 Invalid Interpretation Code [facility] Comment on above: Performed By: #### 1 [id number] ####[address] [place] [address] Test Name HCG, tumor lorenzo Invalid Interpretation Code [facility] Comment on above: Performed By: #### 1 [id number] ####[address] [place] [address] Physician Orderon 01-29-2024 Physician Order [id number]#1.00TIFF Normal [facility] Reference Laboratory Testing Ordered By: Niya Anguiano on 01-29-2024 Test Code 004153 1 Invalid Interpretation Code [facility] Test Code 433392 1 Invalid Interpretation Code [facility] Test Name LDH Isoenzymes Invalid Interpretation Code [facility] Test Name HCG, tumor lorenzo Invalid Interpretation Code [facility] US Pelvis Non-OB Completeon 01-17-2024 US Pelvis [...] Free fluid: None. Report Ordering Provider: Edel LOBO FINAL REPORT Dictated: 01/17/2024 10:13 am Bentley Gardner MD Signed (Electronic Signature): 01/17/2024 10:13 am Signed by: Bentley Gardner MD Transcribed by: MARI Technologist: CARLOZ Rendon [facility] US Transvaginal Non-OBon US Transvaginal Non-OB Exam Date/Time: 01/14/2024 09:56 EDT Reason for Exam: N92.6, N83.209 Report Refer to concurrent pelvic ultrasound dictation. Ordering Provider: Edel LOBO FINAL REPORT Dictated: 01/17/2024 10:14 am Bentley Gardner MD Signed (Electronic Signature): 01/17/2024 10:14 am Signed by: Bentley Gardner MD Transcribed by: MARI Technologist: CARLOZ Normal [facility] Consent for Treatmenton Consent for Treatment [id number]#1.00TIFF Normal [facility] Physician Orderon 12-09-2023 Physician Order [id number]#1.00TIFF Normal [facility] Anti-Mullerian Hormone (AMH) on 10-25-2023 Mullerian inhibiting substance [Mass/Vol] 5.63 ng/mL Invalid Interpretation Code [facility] Comment on above: Result Comment: For assays employing antibodies, the possibility exists for interference by heterophile antibodies in the samples.1 1.Suzi Spence. Interferences in Immunoassays - still a threat. Clin. Chem. 2000; 46: 3246-9364. This test was developed and its performance characteristics determined by [employer]. It has not been cleared or approved by the Food and Drug Administration. Reference Range: Females 20 - 25y: 1.23 - 11.51 Median 4.70 AMH concentrations of >= 1.06 ng/mL is correlated with a better response to ovarian stimulation, produced more retrievable oocytes and higher odds of live according to Gleicher et al. Fertility and Sterility. 2010: 94:5943-8273. The current AMH test method correlates with [...] exclude an AMH-secreting ovarian tumor. Performed at: [facility] [facility] [address] [place], [place] [id number] MD Curtis Abdalla Performed By: #### 2 291769, 2266557, 196841626, 9955923, 23617787, 8080494683, 2244175, 52268184 ####[facility] [address] [place] [address] DHEASon 10-25-2023 DHEA-S [Mass/Vol] 265.0 microgram/dL Invalid Interpretation Code 110.0-431. 7 [facility] Comment on above: Result Comment: Perf ormed at: [address] [id number] PhD Bryan Ruelas Performed By: #### 2 872417, 1068216, 369034864, 0431292, 73155580, 9684575862, 6994777, 61514099 ####[facility] [address] [place] [address] FSH and LHon 10-25-2023 Follitropin Qn 12.1 m[IU]/mL Invalid Interpretation Code [facility] Comment on above: Result Comment: Adul t Female Range Follicular phase 3.5 - 12.5 Ovulation phase 4.7 - 21.5 Luteal phase 1.7 - 7.7 Postmenopausal 25.8 - 134.8 Performed at: [address] [id number] PhD Bryan Ruelas Performed By: #### 2 581574, 2162150, 337043887, 3239012, 85409794, 2007116975, 5000656, 37068662 ####[facility] [address] [place] [address] Lutropin Qn 66.7 m[IU]/mL Invalid Interpretation Code [facility] Comment on above: Result Comment: Adul t Female Range Follicular phase 2.4 - 12.6 Ovulation phase 14.0 - 95.6 Luteal phase 1.0 - 11.4 Postmenopausal 7.7 - 58.5 Performed By: #### 2 358547, 2442942, 839216113, 2648366, 99260945, 2806500048, 3947552, 67849103 ####[facility] [address] [place] [address] US Pelvis Non-OB Completeon 10-23-2023 US Pelvis [...] Free fluid: None. Report Ordering Provider: Edel LOBO FINAL REPORT Dictated: 10/23/2023 9:56 am Bentley Gardner MD Signed (Electronic Signature): 10/23/2023 9:56 am Signed by: Bentley Gardner MD Transcribed by: MARI Technologist: CARLOZ Normal [facility] US Transvaginal Non-OBon US Transvaginal Non-OB Exam Date/Time: 10/22/2023 12:35 EST Reason for Exam: Abnormal vaginal bleeding Report Refer to concurrent pelvic ultrasound dictation. Ordering Provider: Edel LOBO FINAL REPORT Dictated: 10/23/2023 9:56 am Bentley Gardner MD Signed (Electronic Signature): 10/23/2023 9:56 am Signed by: Bentley Gardner MD Transcribed by: MRAI Technologist: CARLOZ Normal [facility] Auto Diffon 10-22-2023 Basophils/100 WBC (Bld) 0.5 % Normal 0.0-2.0 [facility] Comment on above: Order Comment: Order Added by Discern Expert. Performed By: #### 2 853021, 0508514, 414522543, 1987710, 55813802, 7843515262, 6809038, 77986360 ####[facility] [address] [place] [address] Basophils/Leukocytes Auto (Bld) [Pure # fraction] 0.0 E9/L Normal 0.0-0.2 [facility] Comment on above: Order Comment: Order Added by Discern Expert. Performed By: #### 2 851680, 0517109, 390340320, 4099624, 62046230, 7581367084, 0976956, 20611168 ####[facility] [address] [place] [address] Eosinophils/100 WBC (Bld) 0.5 % Normal 0.0-8.0 [facility] Comment on above: Order Comment: Order Added by Discern Expert. Performed By: #### 2 428303, 0995630, 339950889, 9204685, 00307483, 5719833399, 3662730, 12268073 ####[facility] [address] [place] [address] Eosinophils/Leukocytes Auto (Bld) [Pure # fraction] 0.0 E9/L Normal 0.0-0.5 [facility] Comment on above: Order Comment: Order Added by Discern Expert. Performed By: #### 2 419777, 2796408, 753317094, 3833970, 02824195, 2645435401, 2947758, 77864206 ####[facility] [address] [place] [address] Lymphocytes/100 WBC (Bld) 21.2 % Normal 14.0-50.0 [facility] Comment on above: Order Comment: Order Added by Discern Expert. Performed By: #### 2 825210, 1192146, 323905057, 2039449, 87225113, 2876093479, 1306236, 26912422 ####[address] [address] Lymphocytes/Leukocytes Auto (Bld) [Pure # fraction] 1.8 E9/L Normal 1.0-4.0 [facility] Comment on above: Order Comment: Order Added by Discern Expert. Performed By: #### 2 769569, 9018692, 218347049, 2627153, 76101171, 4553106380, 1318354, 25195883 ####[address] [address] Monocytes/100 WBC (Bld) 7.4 % Normal 4.0-14.0 [facility] Comment on above: Order Comment: Order Added by Discern Expert. Performed By: #### 2 274911, 0520950, 768849501, 2730716, 69119209, 0610117170, 8346504, 38343229 ####[address] [place] [address] Monocytes/Leukocytes Auto (Bld) [Pure # fraction] 0.6 E9/L Normal 0.2-1.0 [facility] Comment on above: Order Comment: Order Added by Cristian Expert. Performed By: #### 2 426493, 3073399, 685042673, 7681616, 22015659, 8787728659, 6193561, 65434288 ####[address] [place] [address] Neutrophils/100 WBC (Bld) 70.4 % Normal 36.0-75.0 [facility] Comment on above: Order Comment: Order Added by Discern Expert. Performed By: #### 2 416872, 7040008, 439734992, 8748817, 80056852, 5940915097, 7364499, 70303073 ####[facility] [address] [place] [address] Neutrophils/Leukocytes Auto (Bld) [Pure # fraction] 6.2 E9/L Normal 2.0-7.5 [facility] Comment on above: Order Comment: Order Added by Discern Expert. Performed By: #### 2 473197, 0313396, 037872513, 5293737, 40147906, 9746790234, 2234969, 92992028 ####[address] [place] [address] BhCG Quanton 10-22-2023 Beta hCG Qnt <1 Normal 1-3 [facility] Comment on above: Result Comment: 'F N ON < 1 - 3' ' 0.2 - 1 WEEK = 5 TO 50' ' 1 - 2 WEEKS = 50 - 500' ' 2 - 3 WEEKS = 100 - 5000' ' 3 - 4 WEEKS = 500 - 78764' ' 4 - 5 WEEKS = 1000 - 52862' ' 5 - 6 WEEKS = 35386 - 628580' ' 6 - 8 WEEKS = 35501 - 972115' ' 8 - 12 WEEKS = 64277 - 859096' Performed By: #### 2 801410 ####[facility] [address] [place] [address] CBC w/ Auto Diffon Erythrocyte distribution width (RBC) [Ratio] 14.5 % High 10.9-14.2 [facility] Comment on above: Performed By: #### 2 205088, 2730727, 917776477, 8880305, 61979794, 5205828868, 7895841, 97235536 ####[facility] [address] [place] [address] Hematocrit (Bld) [Volume fraction] 35.6 % Normal 34.0-46.0 [facility] Comment on above: Performed By: #### 2 174986, 5490391, 327667485, 4458393, 20955286, 5329126703, 6387063, 35710512 ####[address] [address] Hemoglobin (Bld) [Mass/Vol] 11.9 g/dL Low 12.0-16.0 [facility] Comment on above: Performed By: #### 2 524833, 0769042, 856138270, 8534442, 98852405, 3864190197, 1309921, 89477067 ####[address] MCH (RBC) [Entitic mass] 28.6 pg Normal 27.0-34.0 [facility] Comment on above: Performed By: #### 2 817266, 5190944, 186894658, 9699119, 46504916, 2574971103, 4404981, 87958911 ####[address] MCHC (RBC) [Mass/Vol] 33.4 g/dL Normal 31.4-36.[address] [facility] Comment on above: Performed By: #### 2 426289, 0529714, 290986898, 3124128, 57005089, 4165986219, 8169748, 10787562 ####[address] [address] MCV (RBC) [Entitic vol] 85.8 fL Normal 80.0-100.0 [facility] Comment on above: Performed By: #### 2 098782, 4203049, 263815931, 4620212, 53240072, 8389574424, 4265433, 27391697 ####[address] [address] Platelet mean volume (Bld) [Entitic vol] 9.8 fL Normal 6.4-10.8 [facility] Comment on above: Performed By: #### 2 407421, 6645447, 862529070, 1494566, 27820416, 1012150125, 9048805, 49404803 ####[facility] [address] [place] [address] Platelets (Bld) [#/Vol] 293.0 E9/L Normal 150.0-500. 0 [facility] Comment on above: Performed By: #### 2 720899, 9844507, 797460723, 7931073, 56184057, 7090577041, 3304356, 49874476 ####[facility] [address] [place] [address] RBC (Bld) [#/Vol] 4.2 E12/L Low 4.3-5.9 [facility] Comment on above: Performed By: #### 2 982696, 6760137, 981922613, 4703976, 56823939, 0474660115, 4578974, 22386345 ####[facility] [address] [place] [address] WBC corrected for nucl RBC Auto (Bld) [#/Vol] 8.7 E9/L Normal 4.0-11.0 [facility] Comment on above: Performed By: #### 2 046432, 0923421, 227539622, 6218014, 83216670, 6177856764, 6834867, 93974500 ####[address] [place] [address] CHEMISTRYOrdered By: SYSTEM SYSTEM on 10-22-2023 Beta [...] 3 - 4 WEEKS = 500 - 54476' ' 4 - 5 WEEKS = 1000 - 46066' ' 5 - 6 WEEKS = 39959 - 441648' ' 6 - 8 WEEKS = 45397 - ' ' 8 - 12 WEEKS = 28846 - 197886' Free T4 [Mass/Vol] 0.75 ng/dL Normal 0.58 - 1.64 ng/dL Remisol Chem TSH Qn 2.03 m[IU]/L Normal 0.34 - 5.60 mcIU/mL Remisol Chem CHEMISTRYOrdered By: Saida Anguiano on 10-22-2023 HbA1c (Bld) [Mass fraction] 4.7 % Normal <=5.9% [facility] ChemAutoSS Consent for Treatmenton 10-07 Consent for Treatment [id number]#1.00TIFF Normal [facility] Consent for Treatment [id number]#1.00TIFF Normal [facility] Free T4on 10-22-2023 Free T4 [Mass/Vol] 0.75 ng/dL Normal 0.58-1.64 [facility] Comment on above: Performed By: #### 2 451692, 0606035, 850427579, 7367315, 64670698, 3678236936, 6664458, 28509339 ####[facility] [address] [place] [address] HEMATOLOGYOrdered By: SYSTEM SYSTEM on 10-22-2023 Basophils/100 [...] 8.7 E9/L Normal 4.0 - 11.0 E9/L [facility] HemeAutoSS ShrL6ncb 10-22-2023 HbA1c (Bld) [Mass fraction] 4.7 % Normal <=5.9 [facility] Comment on above: Performed By: #### 2 901750, 4381802, 018388258, 9732492, 84670902, 0478957910, 6714953, 50927393 ####[facility] [address] [place] [address] Physician Orderon 10-22-2023 Physician Order [id number]#1.00TIFF [facility] TSHon 10-22-2023 TSH Qn 2.03 m[IU]/L Normal 0.34-5.60 [facility] Comment on above: Performed By: #### 2 718392, 1984761, 277206944, 9276288, 94692786, 7203478846, 9298470, 96071187 ####[facility] [address] [place] [address] Physician Orderon 10-10-2023 Physician Order [id number]#1.00TIFF [facility] C Urineon 08-04-2023 Bacteria identified Cx Nom (U) Microbiology PROCEDURE: Urine Culture [R1] SOURCE: U CleanCatch BODY SITE: COLLECTED DATE/TIME: 08/02/2023 13:10 EDT RECEIVED DATE/TIME: 08/02/2023 14:37 EDT START DATE/TIME: 08/02/2023 14:37 EDT FREE TEXT SOURCE: Wiley Esquivel PA-C. Alvin NICOLAS, Wiley Yu. FINAL REPORTS Final Report [] Verified Date/Time: 08/04/2023 11:35 EDT 1,000 cfu/ml Mixed skin contaminants Performing Locations R1: This [facility] performed at: [facility] [address] [place] [address], [address] , , [facility] Comment on above: Performed By: #### 2 462638 ####[address] [place] [address] Family Medicine Office/Clini c Noteon 08-02-2023 Family [...] with voice recognition software. Occasional wrong-word or ?ksffi-l-bltd? substitutions may have occurred due to the [...] tolerable and when she just bought some wpcg-mju-yjuxfcb cranberry and vitamin C. She has not [...] day(s), # 9 tab(s), Refills(s) 0, Pharmacy: [facility], 165, cm, 08/02/23 12:41:00 EDT, Height/Length Dosing, 60, kg, 08/02/23 12:41:00 EDT, Weight Dosing 2. Dysuria (R30.0: Dysuria) see above Ordered: phenazopyridine, 100 mg = 1 tab(s), Oral, TID, X 3 day(s), # 9 tab(s), Refills(s) 0, Pharmacy: [facility], 165, cm, 08/02/23 12:41:00 EDT, Height/Length Dosing, 60, kg, 08/02/23 12:41:00 EDT, Weight Dosing UTI (urinary tract infection), uncomplicated (N39.0: Urinary tract infection, site not specified) Ordered: Urnls Dip Stick Non-Auto w/o Micrscpy POC 21410 Follow-up With When Contact Information Yulissa Coy CNP [address] [place] [address], [address] [place] [address]- Additional Instructions: Patient Education Dysuria Problem List/Past Medical History Ongoing No chronic problems Historical No qualifying data Procedure/Surgical History Dental, Tonsillectomy and adenoidectomy. Medications Pyridium 100 mg Tab, 100 mg= 1 tab(s), Oral, TID Allergies penicillin (Hives) Social History Tobacco - Denies Tobacco Use, 08/21/2022 Never (less than 100 in lifetime) Tobacco Use:. Never Smokeless Tobacco Use:., 1 (more content not included)... Normal [facility] Comment on above: Result Comment: Elec tronically [...] these instructions at home: Medicines ? Take josz-vfi-xwsdnod and prescription medicines only as told by [...] provider. Document Revised: 05/05/2021 Document Reviewed: 05/05/2021 [employer] Patient Education ? 2022 [employer] Normal [facility] Ambulatory Visit Summaryon 0 02-12-2023 Ambulatory Visit Summary OSCAR SANDOVAL Jordy :2000 Visit Date:02/12/2023 Ambulatory Visit Instructions Your [...] Up with Yulissa Coy CNP When: Where: [address] [place] [address], [address] [place] [address]- Medications What How Much When Why Instructions New azithromycin (Zithromax 250 mg Tab) 1 Packets By Mouth As Directed Bronchitis Bronchitis Duration: 5 Days as directed on package labeling Pickup at [facility] New benzonatate (Tessalon 100 mg Cap) 1 Capsules By Mouth 3 times a day Bronchitis Bronchitis Duration: 7 Days Pickup at [facility] Pharmacy Information [facility]: [address] [place], [place] [id number] [phone] Medications and Immunizations Administered Not Given influenza [...] Follow these instructions at home: ? Take wysa-pzg-hfgwbti and prescription medicines only as told by [...] are s (more content not included)... Normal [facility] Family Medicine Office/Clini c Noteon 02-12-2023 Family [...] Patient states symptoms started just prior to when she had a bad cough and [...] day(s), # 6 tab(s), Refills(s) 0, Pharmacy: [facility], 166, cm, 02/12/23 14:16:00 EDT, Height/Length Dosing, 65.3, kg, 02/12/23 14:16:00 EDT, Weight Dosing benzonatate, 100 mg = 1 cap(s), Oral, TID, X 7 day(s), # 21 cap(s), Refills(s) 0, Pharmacy: [facility], 166, cm, 02/12/23 14:16:00 EDT, Height/Length Dosing, 65.3, kg, 02/12/23 14:16:00 EDT, Weight Dosing Follow-up With When Contact Information Yulissa Coy CNP [address] [place] [address], [address] [place] [address]- Additional Instructions: Patient Education Acute Bronchitis, Adult [...] vac - (more content not included)... Normal [facility] Comment on above: Result Comment: Elec tronically [...] Follow these instructions at home: ? Take rbcu-hdj-rswfsxb and prescription medicines only as told by [...] and water are not available, use hand calker. ? Avoid contact with people who have [...] is easier to cough up. ? Take zaza-kxs-ktnkcga and prescription medicin (more content not included)... Normal [facility] Patient Letter FTon 2022 Patient Letter [facility] (Inserted Image. Livia ble to display) February 12, 2023 OSCAR SANDOVAL [address] [place] [id number] Please excuse OSCAR SANDOVAL from work . Date and/or Time of Absence: From: 02/12/2023 To: 02/12/2023 May return to work on: 02/12/2023 Restrictions: None Comments: Please excuse due to an acute illness. Provider Signature: Wiley Esquivel PA-C Physician Accountant Manager [facility] [address] [place] [address] Normal [facility] Body fluid albumin measureme nt (mass/volume)Ordered By: Te Calles on 07-24-2022 Albumin (Body fld) [Mass/Vol] 4.3 g/dL 3.2-5.5 Cholesterol [Mass/volume] in Serum or PlasmaOrdered By: Te Calles on 07-24-2022 Cholesterol [Mass/Vol] 163 mg/dL 140-200 [facility] Comment on above: Chol less than 200 m g/dl low riskChol 201-239 mg/dl borderline riskChol 240 mg/dl and greater high risk Cholesterol in LDL Calc [Mas s/Vol]Ordered By: Te Calles on 07-24-2022 Cholesterol in LDL [Mass/Vol] 102 mg/dL 0-100 Comment on above: LDL ATP III CLASSIFI CATIONLDL less than 100 mg/dL OptimalLDL 100-129 mg/dL Near or above optimalLDL 130-159 mg/dL Borderline highLDL 160-189 mg/dL HighLDL greater than 189 mg/dL Very high Cholesterol in VLDL Calc [Ma ss/Vol]Ordered By: Te Calles on 07-24-2022 Cholesterol in VLDL [Mass/Vol] 13 mg/dL Creatinine and Glomerular fi ltration rate.predicted panel (S/P/Bld)Ordered By: Te Calles on 07-24-2022 Creatinine [Mass/Vol] 0.79 mg/dL 0.44-1.03 [facility] Estimated glomerular filtrat ion rate (GFR) non- AmericanOrdered By: Te Calles on 07-24-2022 GFR/1.73 sq M.predicted among non-blacks MDRD (S/P/Bld) [Vol rate/Area] > 60 mL/Min Globulin Calc (S) [Mass/Vol] Ordered By: Te Calles on 07-24-2022 Globulin (S) [Mass/Vol] 2.9 g/dL Laboratory - Chemistry and C hemistry - challengeOrdered By: Te Calles on 07-24-2022 Glucose [Mass/Vol] 85 mg/dL 70-100 [facility] No Panel InformationOrdered By: Te Calles on 07-24-2022 Estimated GFR () > 60 mL/Min Comment on above: GFR estimated refere nce range: According to KDOQI guidelines, <60 ml/min/1.73m2 is sufficient to diagnose a patient with chronic kidney disease. Pharmacy Creatinine Clearance (Chem N/A Triglycerides Reflex 65 mg/dL 35-149 [facility] Comment on above: TRIG ATP III CLASSIF ICATIONTRIG less than 150 mg/dL NormalTRIG 150-199 mg/dL Borderline highTRIG 200-500 mg/dL High TRIG greater than 500 mg/dL Very highStandard traceable to the Center for Disease Conrtrol and Prevention (CDC) test method. Protein [Mass/volume] in Ser um or PlasmaOrdered By: Te Calles on 07-24-2022 Protein [Mass/Vol] 7.2 g/dL 6.1-7.9 [facility] Serum or plasma alanine gregory otransferase measurement without P-5'-P (enzymatic activiOrdered By: Te Calles on 07-24-2022 ALT No additional P-5'-P [Catalytic activity/Vol] 14 U/L 10-60 Serum or plasma albumin/glob ulin mass ratioOrdered By: Te Calles on 07-24-2022 Albumin/Globulin [Mass ratio] 1.5 {ratio} Serum or plasma alkaline crissy sphatase measurement (enzymatic activity/volume)Ordered By: Te Calles on 07-24-2022 ALP [Catalytic activity/Vol] 53 U/L 32-92 Serum or plasma anion gap de terminationOrdered By: Te Calles on 07-24-2022 Anion gap [Moles/Vol] 17.0 mmol/L 6.0-15.0 [facility] Serum or plasma aspartate am inotransferase measurement (enzymatic activity/volume)Ordered By: Te Calles on 07-24-2022 AST [Catalytic activity/Vol] 18 U/L 10-42 Serum or plasma calcium desi urement (mass/volume)Ordered By: Te Calles on 07-24-2022 Calcium [Mass/Vol] 9.8 mg/dL 8.2-10.2 [facility] Serum or plasma chloride dorian surement (moles/volume)Ordered By: Te Calles on 07-24-2022 Chloride [Moles/Vol] 98 mmol/L 95-114 [facility] Serum or plasma high density lipoprotein (HDL) cholesterol measurementOrdered By: Te Calles on 07-24-2022 Cholesterol in HDL [Mass/Vol] 48 mg/dL 35-85 Comment on above: HDL CHOL ATP-III CLA SSIFICATION Cardiovascular RiskHDL > or equal to 60 mg/dL LOWHDL < 40 mg/dL HIGH Serum or plasma potassium me asurement (moles/volume)Ordered By: Te Calles on 07-24-2022 Potassium [Moles/Vol] 4.3 mmol/L 3.5-5.1 [facility] Serum or plasma sodium measu rement (moles/volume)Ordered By: Te Calles on 07-24-2022 Sodium [Moles/Vol] 136 mmol/L 136-146 [facility] Serum or plasma total biliru bin measurement (mass/volume)Ordered By: Te Calles on 07-24-2022 Bilirubin [Mass/Vol] 1.7 mg/dL 0.3-1.2 [facility] Comment on above: Samples from patient s who have taken Naproxen have shown spurious elevation in Total Bilirubin levels. A metabolite of Naproxen, O-desmethylnaproxen, has been shown to interfere with the Pooja-Freddy method for measuring Total Bilirubin. Serum or plasma total carbon dioxide measurement (moles/volume)Ordered By: Te Calles on 07-24-2022 CO2 [Moles/Vol] 25.3 mmol/L 22.0-30.0 [facility] Serum or plasma total choles terol/high density lipoprotein (HDL) cholesterol mass ratOrdered By: Te Calles on 07-24-2022 Cholesterol.total/Chol esterol in HDL [Mass ratio] 3.4 {ratio} <5.0 Serum or plasma urea nitroge n measurement (mass/volume)Ordered By: Te Calles on 07-24-2022 Urea nitrogen [Mass/Vol] 11 mg/dL 06-29 Covid-19 PCR (CVDTBH)on 06-07 SARS-CoV-2 (COVID-19) RNA DWAIN+probe Ql (Unsp spec) Detected Critically abnormal NOT DETECTED [facility] Comment on above: Result Comment: This test is not yet approved or cleared by the [place] FDA. When there are no FDA-approved or cleared tests available, and other criteria are met, FDA can make tests available under an emergency access mechanism called an Emergency Use Authorization (EUA). The EUA for this test is supported by the [place] of Health and Human Service's (HHS's) declaration [...] longer be used). Performed By: #### C [facility] #### [facility] [address] [place] [address] Dr. Shay Sosa SYMPTOMATIC COVID-19 ANTIGEN on 06-22-2021 EUA Statement SEE BELOW Normal [facility] Comment on above: Result Comment: This test [...] sooner. Performed By: #### C VDAGS #### [facility] [address] [place] [address] Dr. Shay Sosa SARS-CoV-2 (COVID-19) RNA DWAIN+probe Ql (Unsp spec) Positive Critically abnormal NEGATIVE [facility] Comment on above: Performed By: #### C VDAGS #### [facility] [address] [place] [address] Dr. Shay Sosa QUANTIFERON TB GOLD PLUS (NO N-INC)on 02-01-2021 Comment Incubation performed. Normal [facility] Comment on above: Performed By: #### Q NTTBG #### [facility] [address] [place] [address] Chaim Delia Criteria Comment Normal [facility] Comment on above: Result Comment: The QuantiFERON-TB Gold Plus result is determined by subtracting the Nil value from either TB antigen (Ag) tube. The mitogen tube serves as a control for the test. Performed By: #### Q NTTBG #### [facility] [address] [place] [address] Chaim Delia Mitogen Value 4.59 IU/mL Normal [facility] Comment on above: Performed By: #### Q NTTBG #### [facility] [address] [place] [address] Chaim Delia Nill Value 0.03 IU/mL Normal [facility] Comment on above: Performed By: #### Q NTTBG #### [facility] [address] [place] [address] Chaim Delia Quantiferon Gold Plus Negative Normal Negative [facility] Comment on above: Result Comment: Chem iluminescence immunoassay methodology Performed By: #### Q NTTBG #### [facility] [address] [place] [address] Chaim Delia TB1 Ag Value 0.03 IU/mL Normal [facility] Comment on above: Performed By: #### Q NTTBG #### [facility] [address] [place] [address] Chaim Delia TB2 Ag Value 0.02 IU/mL Normal [facility] Comment on above: Performed By: #### Q NTTBG #### [facility] [address] [place], [place] [id number] Chaim Lin MMR IMMUNITYon 01-30-2021 Mumps Abs, IgG 63.5 AU/mL Normal Immune >10.9 [facility] Comment on above: Result Comment: Nega tive <9.0 Equivocal 9.0 - 10.9 Positive >10.9 A positive result generally indicates past exposure to Mumps virus or previous vaccination. Performed By: #### M MRIMMU #### [facility] [address] [place], [place] [id number] Chaim Lin Rubella Antibodies, IgG 6.09 index Normal Immune >0.99 [facility] Comment on above: Result Comment: Non- immune <0.90 Equivocal 0.90 - 0.99 Immune >0.99 Performed By: #### M MRIMMU #### [facility] [address] [place] [address] Chaim Lin Rubeola Ab, IgG 57.0 AU/mL Normal Immune >16.4 [facility] Comment on above: Result Comment: Nega tive <13.5 Equivocal 13.5 - 16.4 Positive >16.4 Presence of antibodies to Rubeola is presumptive evidence of immunity except when acute infection is suspected. Performed By: #### M MRIMMU #### [facility] [address] [place], [place] [id number] Chaim Lin VARICELLA IGG ABon Varicella Zoster IgG 467 index Normal Immune >165 [facility] Comment on above: Result Comment: Nega tive <135 Equivocal 135 - 165 Positive >165 A positive result generally indicates exposure to the pathogen or administration of specific immunoglobulins, but it is not indication of active infection or stage of disease. Performed By: #### V ARCEL #### [facility] [address] [place] [address] Chaim Lin HEPATITIS B SURFACE ANTIBODY , QUANTon 01-28-2021 Hepatitis B Surf AB Quant 3.7 mIU/mL Critically low Immunity>9 .9 [facility] Comment on above: Result Comment: Stat us of Immunity Anti-HBs Level Inconsistent with Immunity 0.0 - 9.9 Consistent with Immunity >9.9 Performed By: #### H BSRF #### [facility] [address] [place] [address] Chaim Lin Vital Signs Date Time Vital Sign Value Performing Clinician Facility 08-02-2023 12:37-0400 Blood Pressure Location Wiley Esquivel [facility] 08-02-2023 12:37-0400 Body temperature 98.6 [degF] Wiley Esquivel [facility] 08-02-2023 12:37-0400 Diastolic blood pressure 68 mm[Hg] Wiley Esquivel [facility] 08-02-2023 12:37-0400 Heart rate 80 /min Wiley Esquivel [facility] 08-02-2023 12:37-0400 Respiratory rate 18 /min Wiley Esquivel [facility] 08-02-2023 12:37-0400 SaO2% (BldA) [Mass fraction] 98 % Wiley Esquivel [facility] 08-02-2023 12:37-0400 Systolic blood pressure 118 mm[Hg] Wiley Esquivel [facility] 02-12-2023 14:12-0400 Blood Pressure Location Wiley Esquivel [facility] 02-12-2023 14:12-0400 Body temperature 98.96 [degF] Wiley Esquivel [facility] 02-12-2023 14:12-0400 Diastolic blood pressure 74 mm[Hg] Wiley Esquivel [facility] 02-12-2023 14:12-0400 Heart rate 111 /min Wiley Esquivel [facility] 02-12-2023 14:12-0400 SaO2% (BldA) [Mass fraction] 97 % Wiley Esquivel [facility] 02-12-2023 14:12-0400 Systolic blood pressure 112 mm[Hg] Wiley Hammondpsey [facility] 08-21-2022 17:39-0500 Blood Pressure Location Cammie Cogar [facility] 08-21-2022 17:39-0500 Body temperature 98.42 [degF] Cammie Cogar [facility] 08-21-2022 17:39-0500 Diastolic blood pressure 72 mm[Hg] Cammie Cogar [facility] 08-21-2022 17:39-0500 Heart rate 101 /min Cammie Cogar [facility] 08-21-2022 17:39-0500 SaO2% (BldA) [Mass fraction] 100 % Cammie Cogar [facility] 08-21-2022 17:39-0500 Systolic blood pressure 114 mm[Hg] Cammie Cogar [facility] Encounters Encounter Date Encounter Type Care Provider Facility Start: 04-08-2024 End: 04-08-2024 [facility] Start: 03-18-2024 End: 03-18-2024 ambulatory [facility] Start: 02-21-2024 End: 02-21-2024 ambulatory Edel Yamil Facility: Start: 02-21-2024 End: 02-21-2024 ambulatory Edel Yamil Work Phone: [facility] Work Phone: Start: 02-21-2024 End: 02-21-2024 Departed Referred Edel Yamil Work Phone: [facility] Start: 01-29-2024 End: 01-30-2024 ambulatory Edel R YAMIL Facility:[facility] Start: 01-29-2024 End: 01-29-2024 Patient encounter procedure Edel R YAMIL [facility] Start: 01-28-2024 End: 01-28-2024 ambulatory EDEL YAMIL Not Available Start: 01-14-2024 End: 01-15-2024 ambulatory Edel R YAMIL Facility:[facility] Start: 01-14-2024 End: 01-14-2024 Patient encounter procedure Edel R YAMIL [facility] Start: 11-05-2023 End: 11-05-2023 ambulatory EDEL YAMIL Not Available Start: 10-22-2023 End: 10-23-2023 ambulatory Edel R YAMIL Facility:[facility] Start: 10-22-2023 End: 10-22-2023 Patient encounter procedure Edel R YAMIL [facility] Start: 10-02-2023 End: 10-02-2023 ambulatory EDEL YAMIL Not Available Start: 08-02-2023 End: 08-03-2023 ambulatory Wiley Esquivel Facility:[facility] Start: 08-02-2023 End: 08-03-2023 ambulatory Wiley Esquivel Facility: [facility] Start: 08-02-2023 End: 08-02-2023 Lab Drop off Wiley Esquivel [facility] Start: 08-02-2023 End: 08-02-2023 Patient encounter procedure Wiley Esquivel [facility] Start: 07-30-2023 End: 07-30-2023 ambulatory Te Calles - LUIS Facility: Start: 07-30-2023 End: 07-30-2023 ambulatory DO Te Calles Work Phone: [facility] Work Phone: Start: 07-30-2023 End: 07-30-2023 Patient encounter procedure DO Te Calles Work Phone: [facility]-Flu Vaccine Start: 02-12-2023 End: 02-13-2023 ambulatory Wiley Esquivel Facility:[facility] Start: 02-12-2023 End: 02-12-2023 Patient encounter procedure Wiley Esquivel [facility] Start: 08-21-2022 End: 08-21-2022 Lab Drop off Cammie Neal [facility] Start: 08-21-2022 End: 08-21-2022 Patient encounter procedure Cammie Neal [facility] Start: 07-24-2022 End: 07-24-2022 ambulatory DO Te Calles Work Phone: [facility] Work Phone: Start: 07-24-2022 End: 07-24-2022 Departed Referred DO Te Calles Work Phone: [facility] [address] Start: 06-22-2021 End: 06-22-2021 ambulatory MURALI EBERLY Facility:[facility] Start: 01-27-2021 End: 01-27-2021 ambulatory [facility] Facility: Procedures Date Procedure Procedure Detail Performing Clinician Dental Cammie Neal Tonsillectomy and adenoidectomy Cammie Cogar Immunizations Immunization Date Immunization Notes Care Provider Fa cili 08-17-2020 influenza virus vaccine, unspecified formulation Cammie Cogar [facility] 09-08-2019 varicella virus vaccine Cammie Cogar [facility] 05-21-2019 varicella virus vaccine Cammie Cogar [facility] 03-22-2017 meningococcal ACWY vaccine, unspecified formulation Cammie Cogar [facility] 08-26-2012 HPV, unspecified formulation Cammie Cogar [facility] 01-08-2001 DTaP, unspecified formulation Cammie Cogar [facility] 01-08-2001 haemophilus influenz ae type b vaccine, PRP-OMP conjugate Cammie Cogar [facility] 01-08-2001 hepatitis B vaccine, pediatric or pediatric/adolescent dosage Cammie Cogar [facility] 01-08-2001 measles, mumps and rubella virus vaccine Cammie Cogar [facility] 01-08-2001 poliovirus vaccine, unspecified formulation Cammie Cogar [facility] 03-13-2000 DTaP, unspecified formulation Cammie Cogar [facility] 03-13-2000 haemophilus influenz ae type b vaccine, PRP-OMP conjugate Cammie Cogar [facility] 01-10-2000 DTaP, unspecified formulation Cammie Cogar [facility] 01-10-2000 haemophilus influenz ae type b vaccine, PRP-OMP conjugate Cammie Cogar [facility] 01-10-2000 hepatitis B vaccine, pediatric or pediatric/adolescent dosage Cammie Cogar [facility] 01-10-2000 poliovirus vaccine, unspecified formulation Cammie Cogar [facility] 1999 DTaP, unspecified formulation Cammie Cogar [facility] 1999 haemophilus influenz ae type b vaccine, PRP-OMP conjugate Cammie Cogar [facility] 1999 hepatitis B vaccine, pediatric or pediatric/adolescent dosage Cammie Cogar [facility] 1999 poliovirus vaccine, unspecified formulation Cammie Cogar [facility] NEGATED: Highlighted row has not occurred!02-12-2023 influenza virus vaccine, unspecified formulation Wiley Esquivel [facility] NEGATED: Highlighted row has not occurred!02-12-2023 SARS-CoV-2 mRNA (tozinameran 5y-11y) vaccine Wiley Esquivel [facility] NEGATED: Highlighted row has not occurred!08-21-2022 influenza virus vaccine, unspecified formulation Cammie Cogar [facility] NEGATED: Highlighted row has not occurred!08-21-2022 SARS-CoV-2 mRNA (tozinameran 5y-11y) vaccine Cammie Neal [facility] Care Payers Date Payer Category Payer Unknown [id number] 1999 Unknown [id number] 1999 Unknown [id number] [id number] 1999 Unknown [id number] [id number] 1999 Unknown [id number] [id number] 1999 Unknown [id number] [id number] 1999 Unknown [id number] [id number] 1999 Unknown [id number] [id number] 1999 Unknown [id number] [id number] 1999 Unknown [id number] 2.16.840.1.855968.3.579.2.727 1999 Unknown [id number] 2.16.840.1.729619.3.579.2.727 1999 Unknown [id number] [id number] 1999 Unknown [id number] 2.16.840.1.609879.3.579.2.1286 1999 Unknown [id number] [id number] 1959 Self-pay 1959 Unknown [id number] Private Health Insurance [employer] [id number] Unknown [id number] [id number] Unknown MMO [id number] Unknown [id number] [id number] Unknown [id number] [id number] Social History Date Type Detail Facility Tobacco smoking stat [facility] Unknown if ever smoked [facility] Work Phone: Start: 2000 Sex Assigned At Female F [facility] Start: 08-21-2022 End: 08-02-2023 Tobacco smoking status Never smoked tobacco (finding) [facility] Tobacco smoking status Never [facility] Sex Assigned At Female [facility] Functional Status Date Assessment Result Facility 08-02-2023 Functional Status N/A [facility] 02-12-2023 Functional Status N/A [facility] 08-21-2022 Functional Status N/A [facility] Clinical Notes 08-21-2022 to 01-29-2024 Note Date & Type Note Facility 01-29-2024 Evaluation + Plan note Diagnostic Tests PendingCA 125 01/29/24Alpha Fetoprotein Tumor Marker 01/29/24 [facility] 10-22-2023 Evaluation + Plan note Diagnostic Tests PendingFSH and LH 10/22/23D[facility]AS 10/22/23Anti-Mullerian Hormone (AMH) 10/22/23 [facility] 08-02-2023 Hospital Discharg e instructions Patient [...] Follow these instructions at home: Medicines Take ejww-ehw-zzxatyw and prescription medicines only as told by [...] provider. Document Revised: 05/05/2021 Document Reviewed: 05/05/2021 Elsevier Patient Education 2022 [employer]. Follow Up Care 08/02/2023 11:51:58 With:Yulissa Coy CNP Address: [address] [place] [address], [address] [place] [address]- When: Unknown [facility] 08-02-2023 Evaluation + Plan note Diagnostic Tests PendingUrine Culture 08/02/23 [facility] 02-12-2023 Hospital Discharg e instructions Patient [...] condition. Follow these instructions at home: Take izod-shu-rchskpk and prescription medicines only as told by [...] and water are not available, use hand calker. Avoid contact with people who have cold [...] it is easier to cough up. Take istw-vqh-wwldgww and prescription medicines only as told by [...] provider. Document Revised: 01/24/2022 Document Reviewed: 01/24/2022 Elsevier Patient Education 2022 [employer]. Follow Up Care 02/12/2023 13:54:31 With:Yulissa Coy CNP Address: [address] [place] [address], [address] [place] [address]- When: Unknown [facility] 08-21-2022 Hospital Discharg e instructions [...] Treatment for this condition includes: Antibiotic medicine. Rggd-tsw-phpffog medicines to treat discomfort. Drinking enough water [...] Follow these instructions at home: Medicines Take [id number] and prescription medicines only as told by [...] 07/03/2006 Document Revised: 09/10/2019 Document Reviewed: 04/02/2019 [employer] Patient Education 2020 [employer]. Follow Up Care 08/21/2022 16:17:58 With:Yulissa Coy CNP Address: [address] [place] [address], [address] [place] [address]- When: Unknown [facility] 08-21-2022 Evaluation + Plan note Diagnostic Tests PendingUrine Culture 08/21/22 [facility] Evaluation note No assessment inform ation available [facility] Work Phone: Hospital course Narrative No data available for this section [facility] Hospital Discharge instructions No data available for this section [facility] Progress note No data available for this section [facility] Summary Purpose Family History No Family History Records Found No data available for this section No data available for this section No data available for this section No data available for this section No data available for this section No data available for this section No Family History Records Found No data available for this section No Family History Records FoundNo Family History Records FoundNo Family History Records Found Advance Directives No Advanced Directives Records Found Advance Directive Response Recorded Date/ Time Advance Directives No August 08, 2023 2:47pm Chief Complaint and Reason for Visit Chief Complaint new hire labs Chief Complaint flu vaccine Chief Complaint Unknown Additional Source Comments INFORMATION SOURCE (unrecogn ized section and content) DATE CREATED AUTHOR 07/09/2021 [facility] DATE CREATED AUTHOR AUTHOR'S ORGANIZ ATION 01/29/2024 [facility] EPIC DATE CREATED AUTHOR AUTHOR'S ORGANIZ ATION 01/31/2024 [facility] DATE CREATED AUTHOR AUTHOR'S ORGANIZ ATION 02/26/2024 [facility] DATE CREATED AUTHOR AUTHOR'S ORGANIZ ATION 04/09/2024 [facility] Care Teams (unrecognized sec tion and content) Team Status: Inactive Member Role Status Dates DO LUIS Escalona Attending Provider Active Team Status: Inactive Member Role Status Dates Edel Lobo Attending Provider Active Start: Cherise 2023 End: February 21, 2024 Goals (unrecognized section and content) Goals may [...] may be documented in an alternate section FOR RECORDS PERTAINING TO PATIENTS WHO [...] BE BASED ON THE PRIMARY CLINICAL RECORDS. [facility] [employer] [facility]. provides no warranty or guarantee of the accuracy or completeness of information in this document.
[2024-04-28 13:08] LABS: Age Gdln ACOG Testing Note (.); IGP, rfx Aptima HPV ASCU Note (.)
== END 2024-04-22 20:55 | disposition home or self-care (01) ==
LOC: LAB 20:54
PROVIDERS: PCP Nurse Practitioner Family; Visit Provider Physician Assistant
DX: Z01.419 Encounter for gynecological examination (general) (routine) without abnormal findings (principal)
CPT/HCPCS: 88175